=== PATIENT | female | born 1945 | race Caucasian/White ===

== ENCOUNTER 2017-05-11 09:33 | Outpatient (CLI) | payer MEDICARE ==
[~2017-05-11] VITALS: Ht 154.9 cm; Wt 106.9 kg
--- NOTE | ~2017-05-11 | HEMODYNAMI ---
PATIENT:MELISSA CARLIN V MEDICAL RECORD: [id number] : 41 LOCATION:[facility] ADMISSION DATE: 05/11/17 Generatedon:05/11/201712:58 Patient name: MELISSA CARLIN Patient #: [id number] SSN: : 1945 Date of study: 05/11/2017 Page: Of Hemodynamic Procedure Report Patient Data Patient Demographics Procedure consent was obtained First Name: MELISSA Gender: Female Last Name: RAEGAN : 1945 [facility] Initial: V Age: 71 year(s) Patient #: [id number] Race: Unknown Additional ID: [id number] Contact details [address]: [address] [place] [address] [address] [facility] State: [place] City: [facility] Zip code: [address] Past Medical History Allergies Allergen Reaction Date Comments Reported Sulfa drugs 05/11/2017 Other allergy 05/11/2017 Erythromycin Admission Admission Data Admission Date: 05/11/2017 Admission Time: 9:33 Procedure Procedure Types Cath Procedure Diagnostic Procedure [facility] w/Coronaries FFR/IVUS Intra-Coronary IVUS Initial PCI Procedure Coronary Stent Initial Miscellaneous Procedures Moderate Sedation up to 30 minutes Procedure Description Procedure Date Procedure Date: 05/11/2017 Procedure Start Time: 12:40 Procedure End Time: 12:58 Procedure Staff Name Function Yosef Alicea MD Performing Physician Delvin Owens RN Nurse Shelbi King RT Monitor Justyn Lynch RT Scrub Farheen Delgado RT Scrub Procedure Data Cath Procedure Fluoroscopy Diagnostic fluoroscopy Total fluoroscopy Time: 2.8 time: 2.8 min min Diagnostic fluoroscopy Total fluoroscopy dose: 701 dose: 701 mGy mGy Contrast Material Contrast Material Type Amount (ml) Isovue 300 79 Entry Location Entry Primary Successful Side Size Upsize Upsize Entry Closure Succes sful Closure Location (Fr) 1 (Fr) 2 (Fr) Remarks Device Remarks Femoral Right 5 Fr 6 Fr Exoseal artery Short Estimated blood loss: 10 ml Diagnostic catheters Device Type Used For End Catheter Placement Cordis 5Fr Pigtail LV Angiography Catheter (MP) Cordis 5Fr JL 4.0 Left Coronary Catheter (MP) Angiography Cordis 5Fr 3DRC Catheter Right Coronary (MP) Angiography Procedure Complications No complications Procedure Medications Medication Administration Route Dosage Oxygen NC 2 l/min Heparin Flush Bag added to field 2 bags (1000units/500ml NS) 0.9% NaCl I.V. 100 ml/hr Fentanyl I.V. 50 mcg Versed I.V. 1 mg Fentanyl I.V. 50 mcg Versed I.V. 1 mg Heparin Bolus I.V. 4000 units Hemodynamics Rest Heart Rate: 75 (bpm) Snapshots Pre Cath Intra NCS Post Cath Vital Signs Time Heart Resp SPO2 etCO2 UN5mmzs NIBP (mmHg) Rhythm Pain Sedation Rate (ipm) (%) (mmHg) (mmHg) Status Level (bpm) 12:19:49 79 18 90 0 0 139/69(121) NSR 0 (11) 10(A) , No pain 12:24:09 73 19 90 0 0 128/58(110) NSR 0 (11) 10(A) , No pain 12:28:32 78 18 90 0 0 126/61(82) NSR 0 (11) 10(A) , No pain 12:32:44 68 17 92 0 0 119/59(83) NSR 0 (11) 10(A) , No pain 12:37:02 73 18 93 0 0 114/63(78) NSR 0 (11) 10(A) , No pain 12:41:24 74 18 96 0 0 119/30(91) NSR 0 (11) 9(A) , No pain 12:46:37 81 17 94 0 0 122/70(99) NSR 0 (11) 9(A) , No pain 12:50:49 81 16 96 0 0 132/84(120) NSR 0 (11) 9(A) , No pain 12:55:48 81 11 94 0 0 Measuring NSR 0 (11) 9(A) , No pain 12:56:17 79 11 94 0 0 120/56(98) NSR 0 (11) 9(A) , No pain Medications Time Medication Route Dose Verified Delivered Reason Notes Effectiveness by by 12:35:46 Oxygen NC 2 Delvin Hargrove Per physician l/min Roman Owens RN RN 12:35:56 Heparin Flush added 2 Delvin Delvin used for Bag to bags Roman Owens RN procedure (1000units/500ml field RN NS) 12:36:25 0.9% NaCl I.V. 100 Delvin Delvin Per physician ml/hr Roman Owens RN RN 12:36:43 Fentanyl I.V. 50 Delvin Delvin for sedation mcg Roman Owens RN RN 12:36:51 Versed I.V. 1 mg Delvin Delvin for sedation Roman Owens RN RN 12:40:19 Fentanyl I.V. 50 Delvin Delvin for sedation mcg Roman Owens RN RN 12:40:26 Versed I.V. 1 mg Delvin Delvin for sedation Roman Owens RN RN 12:47:10 Heparin Bolus I.V. 4000 Delvin Delvin for units Roman Owens RN anticoagulation easement worker Log Time Note 11:55:59 Delvin Owens RN sent for patient. Start room use. 12:04:00 Time tracking: Regular hours 12:04:04 Plan of Care:Hemodynamics will remain stable., Cardiac rhythm will remain stable., Comfort level will be maintained., Respiratory function will remain adequate., Patient/ family verbilizes understanding of procedure., Procedure tolerated without complication., Recovers from procedure without complications.. 12:13:29 Patient received from Pre/Post Procedure Room to [facility] 1 Alert and oriented. Tansferred to table in Supine position. 12:13:30 Warm blankets applied, and valery hugger turned on for patient comfort. 12:13:31 Correct patient and procedure confirmed by team. 12:13:32 Signed procedure consent form obtained from patient. 12:13:33 ECG and BP/O2 sat monitors applied to patient. 12:13:34 Full Disclosure recording started 12:18:40 Vital chart was started 12:22:17 Baseline sample Acquired. 12:22:20 Rhythm: sinus rhythm 12:22:43 H&P Date Dictated: 05/11/2017 Within 30 days and on chart., New H&P dictated by physician.. 12:22:44 Pre-procedure instructions explained to patient. 12:22:44 Pre-op teaching completed and patient verbalized understanding. 12:22:45 Family in waiting room. 12:22:47 Patient NPO since Midnight. 12:22:59 Patient allergic to Sulfa drugs 12:23:12 Patient allergic to Other allergyErythromycin 12:23:22 Is the patient allergic to Iodine/contrast media? No. 12:23:30 Is patient on blood thinner?No 12:23:33 Patient diabetic? Yes. 12:23:37 Previous problem with sedation/anesthesia? No ? 12:23:38 Snore? Yes 12:23:39 Sleep apnea? No 12:23:41 Deviated septum? No 12:23:41 Opens mouth fully? Yes 12:23:42 Sticks out tongue? Yes 12:23:44 Airway obstruction? No ? 12:23:46 Dentures? No ? 12:23:49 Pre procedure: right dorsailis pedis pulse 1+ Palpable, but thready & weak; easily obliterated 12:23:51 Patient pain scale 0/10 ?. 12:23:56 IV patent on arrival in left hand with 0.9% NaCl at O. 12:24:00 Lab results completed and on chart. 12:24:02 Right groin area was prepped with chlora-prep and draped in sterile fashion 12:24:03 Alarms reviewed by R. N. 12:24:03 Sharps counted by scrub and verified by R.N. 12:24:06 Use device set Femoral Dx 12:24:07 Acist Syringe opened to sterile field. 12:24:08 Bag Decanter opened to sterile field. 12:24:08 Medline Cath Pack opened to sterile field. 12:24:08 Terumo 5Fr Lublin Sheath opened to sterile field. 12:24:09 St Bryon 260cm J .035 wire opened to sterile field. 12:24:10 Acist Hand Control opened to sterile field. 12:24:11 Acist Manifold opened to sterile field. 12:24:11 Diagnostic Infinity 5Fr Multipack catheter opened to sterile field. 12:24:11 Tegaderm 4 x 4 opened to sterile field. 12:25:33 If diabetic: On Metformin? Yes 12:25:45 If on Metformin: Last Dose? 05/09/2017 12:25:50 Final Timeout: patient, procedure, and site verified with staff and physician. All members of the team are in agreement. 12:25:53 Right groin site verified by team. 12:25:56 Physical assessment completed. ASA score P 2 - A patient with mild systemic disease as per Yosef Alicea MD. 12:26:00 Sedation plan: IV Moderate Sedation Versed, Fentanyl 12:28:14 Zero performed for pressure channel P1 12:35:46 Oxygen 2 l/min NC was administered by Delvin Owens RN; Per physician; 12:35:56 Heparin Flush Bag (1000units/500ml NS) 2 bags added to field was administered by Delvin Owens RN; used for procedure; 12:36:25 0.9% NaCl 100 ml/hr I.V. was administered by Delvin Owens RN; Per physician; 12:36:43 Fentanyl 50 mcg I.V. was administered by Delvin Owens RN; for sedation; 12:36:51 Versed 1 mg I.V. was administered by Delvin Owens RN; for sedation; 12:40:19 Fentanyl 50 mcg I.V. was administered by Delvin Owens RN; for sedation; 12:40:26 Versed 1 mg I.V. was administered by Delvin Owens RN; for sedation; 12:40:28 Procedure started. 12:40:31 Local anesthetic to right femoral artery with Lidocaine 2% by Yosef Alicea MD.INITIAL ACCESS ONLY 12:40:56 A 5 Fr sheath was inserted into the Right Femoral artery 12:41:03 A Cordis 5Fr Pigtail Catheter (MP) was advanced over the wire and used for LV Angiography. 12:42:28 LV gram done using MCGHEE 12:42:32 EF : 60 % 12:42:36 Injector settings: Ml/sec: 10, Volume: 20, 12:42:38 Catheter removed. 12:42:49 A Cordis 5Fr JL 4.0 Catheter (MP) was advanced over the wire and used for Left Coronary Angiography. 12:44:17 Catheter removed. 12:44:32 Terumo 6Fr Lublin Sheath opened to sterile field. 12:44:33 Corona Whisper J 300cm 0.014 guide wire opened to sterile field. 12:44:33 Oxatis BasixCompak Inflation Kit opened to sterile field. 12:44:52 A Cordis 5Fr 3DRC Catheter (MP) was advanced over the wire and used for Right Coronary Angiography. 12:45:12 Torrey [place]ag[place] IVUS Catheter opened to sterile field. 12:46:29 Catheter removed. 12:46:52 Sheath upsized to a 6 Fr Short. 12:47:00 Cordis 6FR XBLAD 3.5 guide catheter opened to sterile field. 12:47:09 6 Fr XBLAD 3.5 guide catheter was inserted over the wire 12:47:10 Heparin Bolus 4000 units I.V. was administered by Delvin Owens RN; for anticoagulation; 12:47:33 Whisper wire advanced. 12:50:13 IVUS catheter advanced over wire. 12:50:15 IVUS pass to LAD lesion performed. 12:50:16 IVUS catheter removed over wire. 12:51:26 Inflation Number: 1 A Telarixtronic Integrity 3.0 X 15 stent was prepped and advanced across the Prox LAD. The stent was deployed at 15 NEENA for 0:04 (min:sec). 12:51:47 Stent catheter was removed intact over wire. 12:51:48 Wire removed. 12:51:48 Guide catheter removed. 12:51:58 Sheath removed intact; hemostasis achieved with Exoseal to the Right Femoral artery. 12:52:00 Procedure ended.(Physican Out) 12:53:40 Fluoroscopy time 02.80 minutes. 12:53:43 Fluoroscopy dose: 701 mGy 12:53:43 Flurop Dose total: 701 12:53:47 Contrast amount:Isovue 300 79ml. 12:53:49 Sharps counted by scrub and verified by R.N. 12:53:50 Insertion/operative site no bleeding no hematoma. 12:53:55 Post-op/insertion site Right Femoral artery dressed using a 4 x 4 and Tegaderm. 12:53:59 Post right femoral artery:stable, clean and dry 12:54:01 Post Procedure Pulses reassessed and unchanged 12:54:03 Post-procedure physical assessment completed. ASA score P 2 - A patient with mild systemic disease as per Yosef Alicea MD. 12:54:05 Post procedure rhythm: unchanged. 12:54:07 Estimated blood loss: 10 ml 12:54:08 Post procedure instruction explained to patient.Patient verbalizes understanding. 12:54:08 Patient needs reinforcement of post procedure teaching. 12:54:27 Procedure type changed to Cath procedure, Diagnostic procedure, LHC, C w/Coronaries, FFR/IVUS, Intra-Coronary IVUS Initial, PCI procedure, Coronary Stent Initial, Miscellaneous Procedures, Moderate Sedation up to 30 minutes 12:54:35 Procedure Complication : No complications 12:54:38 See physician's report for complete and final results. 12:55:05 Cordis 6Fr Exoseal opened to sterile field. 12:56:27 Procedure and supply charges have been captured, reviewed, submitted and are correct. 12:58:25 Vital chart was stopped 12:58:27 Report given to Pre/Post Procedure Room. 12:58:30 Patient transfered to Pre/Post Procedure Room with Stretcher. 12:58:38 Procedure ended. 12:58:38 Full Disclosure recording stopped 12:58:41 End room use (Document Last) Intervention Summary Intervention Notes Time ActionType Lesion and Equipment Action# Pressure Duration Attributes Used 12:51:26 Place stent Prox LAD Medtronic 1 15 00:04 Integrity 3.0 X 15 stent Device Usage Item Name Manufacture Quantity Catalog Hospital Part Current Minimal L ot# / Number Charge Number Stock Stock Serial# Code Acist Acist 1 82534 [id number] 316247 620138 20 Syringe Medical Systems Inc Bag Microtek 1 2002S 946687 36174 967824 5 Happy Hour [employer] Inc. Medline Cardinal 1 [id number] 488437 81840 370411 5 Cath Pack Health Terumo 5Fr Terumo 1 [id number] 832627 428012 616571 [address] Bryon 1 161750 096509 268341 675916 30 260cm J .035 wire Acist Hand Acist 1 40304 602154 358352 742366 5 ViClone Medical [employer] Inc Acist Acist 1 74015 521417 710329 230844 5 Eversnap Medical Systems Inc Diagnostic Cardinal 1 [id number] 913191 02354 816236 30 Infinity Health 5Fr Multipack catheter Tegaderm 4 3M 1 1626W 264426 786886 250591 5 x 4 Cordis 5Fr Cardinal 1 626115 5 Pigtail Health Catheter (MP) Cordis 5Fr Cardinal 1 580304 5 JL 4.0 Health Catheter (MP) Terumo 6Fr Terumo 1 JRN760 459816 667311 111315 40 Lublin Sheath Corona Corona 1 [id number] 405641 162867 889991 5 Whisper J Vascular 300cm 0.014 guide wire Merit Merit 1 BD8825 370647 218199 017931 15 BasixComApp Pressk Medical Inflation Kit Cordis 5Fr Cardinal 1 055472 5 [facility] Health Catheter (MP) Solomon Carbajal 1 50350Y 500515 748110 006628 8 [place] IVUS Catheter Cordis 6FR Cardinal 1 [id number] 430272 450757 993715 10 XBLAD 3.5 Health guide catheter Medtronic Medtronic 1 [id number] 609007 072575 1 0 [id number] Integrity 3.0 X 15 stent Cordis 6Fr Cardinal 1 EX600 670218 989314 332379 10 [facility] Proxim Wireless Signature Audit [place] Stage Time Signature Unsigned Intra-Procedure 05/11/2017 Shelbi 12:58:51 PM Counts RT(R) Signatures Monitor : Shelbi Signature : Counts RT Date : Time : [id number] [place] [address]
[~2017-05-11 09:33] MED LIST: ASCORBIC ACID500 MG PO; BAYER CHEWABLE81 MG PO; CELEBREX200 MG PO; CRESTOR10 MG PO; IMDUR30 MG PO; JANUMET 50-1,001 TAB PO; KENALOG 0.1 % 115 GM TP; LANTUS SOL100 UNIT/1 SQ; LISINOPRIL-HCTZ1 T11 PO; LOTRISONE LOTIO30 ML TP; LYRICA150 MG PO; NEXIUM40 MG PO; NORITATE60 GM TP; NORVASC10 MG PO; PLAVIX75 MG PO; PRISTIQ100 MG PO; VESICARE10 MG PO; VITAMIN D3400 UNI1 PO; VOLTAREN100 GM TOPICAL; ZYRTEC10 MG PO
[2017-05-11] MEDS ORDERED: KENALOG 0.1 % 115 GM TOPICAL (10:53)
[2017-05-11 11:01] VITALS: BP 154/62; BMI 42.8
[2017-05-11 11:08] LABS: BASOPHILS 0.3 % (0-2); EOSINOPHILS 1.5 % (0-7); HEMATOCRIT 36.8 % (36.0-48.0); HEMOGLOBIN 12.4 g/dL (12-16); IMMATURE GRANULOCYTES 0.3 % (0-5); LYMPHOCYTES 22.9 % (15-50); MCH 30.5 pg (26.0-34.0); MCHC 33.7 g/dL (31.0-37.0); MCV 90.6 fL (80.0-100.0); MEAN PLATELET VOLUME 10.2 fL (7.4-10.4); MONOCYTES 13.2 % (2-11); NEUTROPHILS 61.8 % (40-80); PLATELET COUNT 237 10x3/uL (130-400); RBC 4.06 10x6/uL (4.00-5.40); RDW 13.1 % (11.5-14.5); WBC 6.9 10x3/uL (4.8-10.8)
[2017-05-11 11:30] LABS: ANION GAP 12.2 mmol/L (8-16); CARBON DIOXIDE 28.5 mmol/L (21.0-32.0); CREATININE - SERUM 1.1 mg/dL (0.6-1.3); POTASSIUM - SERUM 4.7 mmol/L (3.5-5.1)
--- NOTE | 2017-05-11 13:30 | NUR ---
1325 LYING FLAT, 2L NC APPLIED WHILE SLEEPING. SR RATE 71 W NO C/O CHEST PAIN. PULSES PALP X 4. R GROIN 6F EXOSEAL C/D/I WITH NO HEMATOMA OR BLEEDING. DAUGHTER AT BEDSIDE. WILL MONITOR FOR BLEEDING.
--- NOTE | 2017-05-11 13:39 | NUR ---
R GROIN OOZING BLOOD, PRESSURE HELD FOR 5 MINUTES AND TEGADERM/GAUZE REPLACED. WILL MONITOR CLOSELY. ALL VITALS REMAIN WNL.
--- NOTE | 2017-05-11 13:47 | NUR ---
FEMSTOP APPLIED TO R GROIN. PATIENT HAS SKIN TEAR IN FOLD. SKIN TEAR WAS PRESENT ON ARRIVAL. CATH TEAM CALLED TO APPLY FEMSTOP AT LIGHT PRESSURE. WILL CONTINUE TO MONITOR CLOSELY.
--- NOTE | 2017-05-11 14:12 | NUR ---
FEMSTOP REMAINS IN PLACE AT MINIMUM PRESSURE.
--- NOTE | 2017-05-11 14:43 | NUR ---
RESTING QUIETLY WITH VSS CHEST PAIN DENIED. FEMSTOP REMAINS AT MIMIMUM PRESSURE
--- NOTE | 2017-05-11 15:30 | NUR ---
PRESSURE RELEASED ON FEMSTOP WITH SMALL AMOUNT OF BLEEDING NOTED. IT INVESTMENT/PORTFOLIO MANAGER NOTIFIED
--- NOTE | 2017-05-11 15:45 | NUR ---
ORE SMELTER STAFF AT BEDSIDE WITH PRESSURE HELD FOR 10 MINUTES SITE REMAINS TO HAVE SMALL AMOUNT OF BLEEDING. DR TOBAR NOTIFIED WITH FEMSTOP BACK IN PLACE AND ADMIT FOR OBSERVATION
--- NOTE | 2017-05-11 16:48 | NUR ---
REPORT CALLED TO LEATHA AT 4812 WITH PATIENT TRANSFERED TO ROOM 2116
[2017-05-11 17:29] VITALS: BP 150/59; BMI 42.8
--- NOTE | 2017-05-11 17:42 | NUR ---
ALERT AND ORIENTED X4. FEMSTOP PRESSURE DECREASED TO 122mmHG. NO BLOOD ON 4X4 OVER PUNCTURE SITE. CONTINUE TO LOWER PRESSURE. REFUSE SCDs. CONTINUE PLAN OF CARE.
[2017-05-11 20:00] VITALS: BP 142/64
--- NOTE | 2017-05-11 20:43 | NUR ---
RESUMED CARE OF PT, LYING IN BED RESPIRATIONS EVEN AND UNLABORED ON ROOM AIR. 71 SR ON TELEMETRY. LEFT FOREARM SALINE LOCKED. ASSISSTED TO BEDPAN, FEMSTOP IN PLACE FOR NOW, BUT NO PRESSURE TO EXOSEAL. NO NEEDS AT THIS TIME, PEDAL PULSE PALPABLE. CALL LIGHT IN REACH, WILL CONTINUE TO MONITOR. SEE NURSE ASSESSMENT.
[2017-05-12] VITALS: BP 132/47
--- NOTE | 2017-05-12 00:19 | NUR ---
IT HELP DESK TECHNICIAN AT BEDSIDE TO OBTAIN VITALS, CALL LIGHT IN REACH. WILL CONTINUE TO MONITOR.
[2017-05-12 04:00] VITALS: BP 135/55
--- NOTE | 2017-05-12 04:53 | NUR ---
NO CHANGES FROM PREVIOUS ASSESSMENT, CALL LIGHT IN REACH. WILL CONTINUE TO MONITOR.
--- NOTE | 2017-05-12 07:30 | NUR ---
RECEIVED PT IN BED EYES CLOSED RESP UNLABORED NAD NOTED
[2017-05-12 07:47] VITALS: BP 155/64
[2017-05-12 11:42] VITALS: BP 129/54
--- NOTE | 2017-05-12 12:00 | NUR ---
REVIWED DISCHARGE INSTRUCTIONS WITH PT STATES UNDERSTANDING COPY GIVEN DCD SALINE LOCK TO LAC WITH CATHETER INTACT SITE FREE OF REDNESS OR EDEMA PT DISCHARGED HOME LEFT UNIT VIA W/C IN STABLE CONDITION WITH ALL PERSONAL BELONGINGS
--- NOTE | 2017-05-12 12:22 | HP ---
PATIENT: MELISSA CARLIN V MEDICAL RECORD: [id number] ACCOUNT: [id number] LOCATION:[address] : 41 ADMISSION DATE: 05/11/17 HISTORY AND PHYSICAL EXAMINATION DIAGNOSES: 1. Angina. 2. Abnormal nuclear stress test. 3. Hypertension. 4. Hyperlipidemia. HISTORY OF PRESENT ILLNESS: Mrs. Carlin presents with increasing anginal symptomatology. Risk stratified with nuclear stress test revealed significant perfusion defect, now brought for cardiac catheterization. PHYSICAL EXAMINATION: GENERAL APPEARANCE: Well-nourished, well-developed, appears stated age. Level of distress, comfortable. PSYCHIATRIC: Mental status, alert, normal affect. Orientation, oriented to time, place and person. EYES: Lids and conjunctiva, noninjected. No discharge, no pallor. ENT: Lips, teeth, gums, normal dentition. Oropharynx, no cyanosis, no pallor. NECK: Carotid arteries, bilateral normal upstroke, no bruits, no thrills. JUGULAR VEINS: No jugular venous pressure or distention. CERVICAL LYMPH NODES: Nontender, nonenlarged. THYROID: Not enlarged. Nontender. No nodules. LUNGS: Respiratory effort, unlabored. CHEST: Normal curvature. No thoracic deformity. No chest wall tenderness. Percussion, resonant. Auscultation, clear. No wheezes, no rales, no rhonchi. CARDIOVASCULAR: Precordial exam, nondisplaced. No heaves or pericardial thrills. Rate and rhythm, regular. Heart sounds, normal S1, normal S2. No S3, no gallop, no rub. Systolic murmur, not heard. Diastolic murmur, not heard. EXTREMITIES: No cyanosis, no edema. Peripheral pulses, full and equal in all extremities, except as noted. No bruits appreciated. ABDOMEN: Soft, nondistended. Normal aorta. No bruit. Nontender. No masses. Liver, nontender, no hepatomegaly. Spleen, nontender, no splenomegaly. MUSCULOSKELETAL: No joint tenderness. No joint swelling. No erythema. NEUROLOGICAL: Normal gait, normal strength, normal tone. SKIN: Warm and dry. REVIEW OF SYSTEMS: The patient reports easy bruising but reports no swollen glands. The patient reports no fever, no night sweats, no significant weight gain, no significant weight loss. No significant exercise tolerance. The patient reports no dry eyes, no irritation, no vision change. Patient reports no difficulty hearing and no ear pain. Patient reports no frequent nose bleeds or nose and sinus problems. Patient reports on arm pain on exertion. No shortness of breath while lying down. No history of heart murmur. Patient reports no cough, no wheezing or coughing up blood. Patient reports no abdominal pain, no vomiting. Normal appetite. No diarrhea and not vomiting blood. No nausea and no constipation. Patient reports no incontinence. No difficulty urinating. No hematuria. No increased frequency. Patient reports no muscle aches. No weakness, no arthralgias, no back pain. No swelling of the extremities. Patient reports no abnormal mole, no jaundice, no rashes. Reports no loss of consciousness. No weakness and no numbness. No seizures, dizziness, or headaches. The patient reports no depression, no sleep disturbance, feeling HISTORY AND PHYSICAL [id number] CARLIN,TORRES V safe in a relationship and no alcohol abuse. Patient reports on fatigue. Reports no runny nose or sinus pressure. No itching, no hives, and no frequent sneezing. OVERALL IMPRESSION: Anginal symptomatology with significant perfusion defect. We will proceed with coronary angiography. Further care depends on the findings of the angiography. TRANSINT:[id number] Voice Confirmation ID: [id number] DOCUMENT ID: [id number] SUNNY TOBAR MD at 1222 CC: [id number] DICTATION DATE: 05/11/17 0904 SUPERVISOR FIBER LOCKING: 05/11/17 0950 REG [facility] [address] [place] [address]
--- NOTE | 2017-05-12 12:22 | OP ---
PATIENT NAME: MELISSA CARLIN V MEDICAL RECORD: [id number] :41 LOCATION:D.M2 D.2117 ADMISSION DATE: SURGEON: SUNNY TOBAR MD DATE OF OPERATION: 05/11/2017 PROCEDURES: 1. PTCA stent LAD. 2. Intravascular ultrasound. 3. Left heart catheterization. 4. Selective coronary angiography. 5. Left ventriculogram. INDICATION: Angina and coronary artery disease. PROCEDURE IN DETAIL: After informed consent was obtained and after detailed explanation of risks, benefits as well as alternative therapies, the patient elected to proceed with angiogram and angioplasty. The right femoral area was prepped and draped in normal sterile fashion. Right femoral artery was cannulated via modified Seldinger technique with placement of 6-Amharic sheath. All catheters exchanged through this sheath. FINDINGS: The left ventriculogram was performed in standard 30-degree MCGHEE view, reveals good cardiac wall motion throughout all segments. Overall ejection fraction estimated at 60%. SELECTIVE CORONARY ANGIOGRAPHY: 1. Left main showed no significant angiographic disease. 2. Left anterior descending has a 70% stenosis proximally confirmed by intravascular ultrasound. 3. Left circumflex has mild irregularities, but no flow-limiting stenosis. 4. Right coronary has [id number] irregularities, but no flow-limiting stenosis. PTCA STENT OF THE LAD: The anterior perfusion defect correlated with the lesion in the LAD. This was addressed with a 3.0 x 15 mm Integrity. Result was 0% residual stenosis. OVERALL IMPRESSION: Successful percutaneous transluminal coronary angioplasty stent of the left anterior descending going from 70% initial stenosis to 0% residual stenosis. TRANSINT:[id number] Voice Confirmation ID: [id number] DOCUMENT ID: [id number] SUNNY TOBAR MD at 1222 CC: [id number] DICTATION DATE: 05/11/17 1302 TOLL RELIEF OPERATOR: 05/11/17 1828 REG [facility] [address] [place] [id number]
[2017-05-12 13:05] VITALS: Ht 154.9 cm; Wt 106.9 kg
--- NOTE | 2017-05-13 11:12 | DS ---
PATIENT:MELISSA CARLIN V :41 MEDICAL RECORD: [id number] DISCHARGE SUMMARY ADMISSION DATE: 05/11/17 DISCHARGE DATE: 05/12/17 DATE OF DISCHARGE: 05/12/2017 DISCHARGE DIAGNOSES: 1. Angina. 2. Coronary artery disease. 3. Percutaneous transluminal coronary angioplasty stent this admission. 4. Hypertension. 5. Hyperlipidemia. HOSPITAL COURSE: Ms. Carlin presents with anginal symptomatology, found to have single vessel disease, underwent successful PTCA stent. Discharged home with no change in her medications as she is already on aspirin and Plavix. To follow up with [facility] in 1 month. TRANSINT:[id number] Voice Confirmation ID: [id number] DOCUMENT ID: [id number] SUNNY TOBAR MD at 1112 CC: [id number] DICTATION DATE: 05/12/17 1315 MEDICAL RECORDS AUDITOR: 05/13/17 0135 DEP CLI 05/12/17 [address] [place] [address]
== END 2017-05-12 12:00 | disposition home or self-care (01) ==
LOC: D.CATH 09:33 → D.M2 16:13 → D.CATH 05-12 12:00
PROVIDERS: Internal Medicine Interventional Cardiology
DX: I25.119 Atherosclerotic heart disease of native coronary artery with unspecified angina pectoris (principal); I10 Essential (primary) hypertension; E78.5 Hyperlipidemia, unspecified; Z01.812 Encounter for preprocedural laboratory examination

== ENCOUNTER → 2019-05-10 11:09 | Outpatient (CLI) | payer MEDICARE ==
[2017-05-12 13:05] VITALS: BMI 44.5
[~2019-05-10 11:09] MED LIST changes: +KENALOG 0.1 % 115 GM TOPICAL
--- NOTE | 2019-05-11 15:34 | ST ---
PATIENT:MELISSA CARLIN V MEDICAL RECORD: [id number] SEX: F LOCATION:[facility] ORDER #: ADMISSION DATE: 05/10/19 AGE OF PATIENT: 73 REFERRING PHYSICIAN: INTERPRETING PHYSICIAN: SUNNY TOBAR MD DATE OF SERVICE: 05/10/2019 PROCEDURE: Nuclear stress test. INDICATIONS: Angina and coronary artery disease, shortness of breath, hypertension, hyperlipidemia. She was exercised on standard Lexiscan protocol with 27 mCi of sestamibi injected at peak stress, 9 mCi used previously for rest images. FINDINGS: Gated SPECT reveals a preserved ejection fraction at 67% with decreased thickening and brightening throughout the anterior segments. SPECT Imaging: Cardiolite was used as myocardial perfusion agent. There is a fixed perfusion defect anteriorly compatible with previous anterior myocardial infarction; however, there are reversible changes inferiorly. The degree of reversibility is moderate. The amount of myocardium involved between these 2 defects is large. OVERALL IMPRESSION: This is an intermediate- to high-risk nuclear stress test with large reversible and fixed perfusion defects anteriorly as well as inferiorly suggestive of multivessel coronary artery disease. TRANSINT:[id number] Voice Confirmation ID: [id number] DOCUMENT ID: [id number] SUNNY TOBAR MD at 1534 CC: [id number] DICTATION DATE: 05/10/192148 TILLER MAN: 05/11/19 0315 DEP CLI 05/10/19 [address] [place] [address]
== END | disposition home or self-care (01) ==
LOC: D.HCCARDIO 11:09
PROVIDERS: ATTEND Internal Medicine Interventional Cardiology
DX: I25.119 Atherosclerotic heart disease of native coronary artery with unspecified angina pectoris (principal)

== ENCOUNTER 2019-05-22 09:23 | Outpatient (CLI) | payer MEDICARE ==
[~2019-05-22] VITALS: Ht 154.9 cm; Wt 100.0 kg
--- NOTE | ~2019-05-22 | HEMODYNAMI ---
PATIENT:MELISSA CARLIN V MEDICAL RECORD: [id number] : 41 LOCATION:[facility] ADMISSION DATE: 05/22/19 Generatedon:05/22/201914:44 Patient name: MELISSA CARLIN Patient #: [id number] SSN: [id number] : 1945 Date of study: 05/22/2019 Page: Of Hemodynamic Procedure Report Patient Data Patient Demographics Procedure consent was obtained First Name: MELISSA Gender: Female Last Name: RAEGAN : 1945 [facility] Initial: V Age: 73 year(s) Patient #: [id number] Race: SSN: [id number] Additional ID: [id number] Contact details [address]: [address] [place] [address] [address] State: [place] City: [facility] Zip code: [address] Past Medical History Allergies Allergen Reaction Date Comments Reported Sulfa drugs 05/11/2017 Other allergy 05/11/2017 Erythromycin Other allergy 05/22/2019 ERYTHROMYCIN BASE, SULFA Admission Admission Data Admission Date: 05/22/2019 Admission Time: 9:23 Arrival Date: 05/22/2019 Arrival Time: 0:00 Admit Source: Other Insurance Payor: Medicare, Medicaid [facility] #: [id number] Height (in.): 61 BSA: 1.97 (m2) Height (cm.): 154.94 BMI: 41.66 (kg/m2) Weight (lbs.): 220.46 Weight (kg.): 100 Lab Results Lab Result Date: 05/22/2019 Lab Result Time: 10:25 Biochemistry Name Units Result Min Max BUN mg/dl 29 --(----)-* 7 18 Creatinine mg/dl 1 --(--*-)-- 0.6 1.3 CBC Name Units Result Min Max Hematocrit % 35.3 *-(----)-- 42 54 Hemoglobin g/dl 12.1 *-(----)-- 13.5 17.5 Procedure Procedure Types Cath Procedure Diagnostic Procedure C LH w/Coronaries FFR/IVUS FFR Initial Sedation Charges Moderate Sedation up to 15 minutes PCI Procedure Coronary Stent Coronary Stent Initial Procedure Description Procedure Date Procedure Date: 05/22/2019 Procedure Start Time: 14:23 Procedure End Time: 14:39 Procedure Staff Name Function Ysoef Alicea MD Performing Physician Ross Shaw RT Monitor Karl Portillo RN Nurse Jennifer Wood RT Scrub Justyn Lynch RT Winch Runner Procedure Data Cath Procedure Fluoroscopy Diagnostic fluoroscopy Total fluoroscopy Time: 3.1 time: 3.1 min min Diagnostic fluoroscopy Total fluoroscopy dose: 873 dose: 873 mGy mGy Contrast Material Contrast Material Type Amount (ml) Isovue 300 90 Entry Location Entry Primary Successful Side Size Upsize Upsize Entry Closure Succes sful Closure Location (Fr) 1 (Fr) 2 (Fr) Remarks Device Remarks Femoral Right 5 Fr Exoseal artery Estimated blood loss: 10 ml Diagnostic catheters Device Type Used For End Catheter Placement MULTIPACK Pigtail 5 Fr Procedure catheter MULTIPACK JL 4.0 5Fr Procedure catheter MULTIPACK 3DRC 5Fr Procedure catheter Procedure Complications No complications Procedure Medications Medication Administration Route Dosage Oxygen etCO2 Nasal cannula 2 l/min Lidocaine 2% added to field 20 Heparin Flush Bag added to field 2 bags (1000units/500ml NS) 0.9% NaCl I.V. 100 ml/hr Versed I.V. 2 mg Fentanyl I.V. 50 mcg Versed I.V. 0.5 mg Fentanyl I.V. 50 mcg Heparin Bolus I.V. 4000 units Integrilin (Bolus I.V. 9 ml 2mg/ml) Plavix P.O. 600 mg Hemodynamics Rest BSA: 1.97 (m2) HGB: 12.1 (g/dl) O2 Consumption: Estimated: 178.55 (ml/min) O2 Co nsumption indexed: Estimated:90.63 (ml/min/m) Heart Rate: 69 (bpm) Pressure Samples Time Site Value (mmHg) Purpose Heart Use Rate(bpm) 14:25 LV 160/21,22 Snapshot 69 14:25 LV 158/19,26 Snapshot 65 Snapshots Pre Cath Intra NCS Post Cath Vital Signs Time Heart Resp SPO2 etCO2 NIBP (mmHg) Rhythm Pain Sedation Rate (ipm) (%) (mmHg) Status Level (bpm) 14:09:06 70 12 96 50.8 178/80(136) NSR 0 (11) 10(A) , No pain 14:13:55 72 20 99 29.9 153/81(119) NSR 0 (11) 10(A) , No pain 14:18:29 69 19 97 44.1 161/94(121) NSR 0 (11) 10(A) , No pain 14:23:12 66 12 95 44.1 156/69(128) NSR 0 (11) 10(A) , No pain 14:27:50 78 13 94 23.1 163/82(132) NSR 0 (11) 9(A) , No pain 14:32:31 73 13 94 38.8 153/84(118) NSR 0 (11) 9(A) , No pain 14:37:05 76 12 94 31.3 150/87(130) NSR 0 (11) 10(A) , No pain Medications Time Medication Route Dose Verified Delivered Reason Notes Effectiveness by by 14:07:31 Oxygen etCO2 2 Yosef Barajas used for Nasal l/min Nixon Portillo RN procedure cannula 14:07:38 Lidocaine 2% added 20ml Yosefelena Navas for local to vial Nixon Alicea MD anesthetic field 14:07:43 Heparin Flush added 2 Yosef Yosef used for Bag to bags Nixon Alicea MD procedure (1000units/500ml field NS) 14:07:52 0.9% NaCl I.V. 100 Yosef Barajas Per physician ml/hr Nixon Portillo RN 14:22:20 Versed I.V. 2 mg Yosef Barajas for sedation Nixon Portillo RN 14:22:26 Fentanyl I.V. 50 Yosef Buffie for sedation mcg Nixon Portillo RN 14:26:59 Versed I.V. 0.5 Yosef Buffie for sedation mg Nixon Portillo RN 14:30:34 Fentanyl I.V. 50 Yosef Buffie for sedation mcg Nixon Portillo RN 14:33:51 Heparin Bolus I.V. 4000 Yosef Milanie for verif ied units Nixon Portillo RN anticoagulation with dr alicea 14:35:05 Integrilin I.V. 9 ml Yosef Barajas for waste d 1 (Bolus 2mg/ml) Nixon Portillo RN antiplatelet ml of therapy vial 14:44:15 Plavix P.O. 600 Yosef Barajas for mg Nixon Portillo RN antiplatelet therapy Procedure Log Time Note 13:41:52 Informed consent obtained and on chart 13:45:19 Karl Portillo RN sent for patient. Start room use. 13:52:10 Procedure Status Elective Heart Cath (OP). 13:52:12 Time tracking: Regular hours (M-F 7:00 - 5:00) 13:52:18 Plan of Care:Hemodynamics will remain stable., Cardiac rhythm will remain stable., Comfort level will be maintained., Respiratory function will remain adequate., Patient/ family verbilizes understanding of procedure., Procedure tolerated without complication., Recovers from procedure without complications.. 13:53:22 Patient allergic to Other allergyERYTHROMYCIN BASE, SULFA 13:58:59 ACC Patient presents with Stable Angina CCS Anginal Class 2--Slight limitation of ordinary activity. 13:59:51 ACCPatient has been prescribed/administered the following anti-anginal medication within the last 2 weeks: Calcium Channel Blockers, Long-Acting Nitrates, IZZY-Inhibitor 14:03:27 Patient Weight : 220.46 lbs 14:03:30 Patient Height : 61 inches 14:03:50 Admit Source: Other 14:03:52 Arrival Date: 05/22/2019 12:00:00 AM 14:04:12 Insurance Payor : Medicare, Medicaid 14:07:09 Lab Result : Hematocrit 35.3 % 14:07:09 Lab Result : Hemoglobin 12.1 g/dl 14:07:09 Lab Result : Creatinine 1 mg/dl 14:07:09 Lab Result : BUN 29 mg/dl 14:07:21 Vital chart was started 14:07:31 Oxygen 2 l/min etCO2 Nasal cannula was administered by Karl Portillo RN; used for procedure; 14:07:32 Patient received from Pre/Post Procedure Room to CCL 1 Alert and oriented. Tansferred to table in Supine position. 14:07:34 Warm blankets applied, and valery hugger turned on for patient comfort. 14:07:34 Correct patient and procedure confirmed by team. 14:07:34 ECG and BP/O2 sat monitors applied to patient. 14:07:35 Baseline sample Acquired. 14:07:38 Lidocaine 2% 20ml vial added to field was administered by Yosef Alicea MD; for local anesthetic; 14:07:43 Heparin Flush Bag (1000units/500ml NS) 2 bags added to field was administered by Yosef Alicea MD; used for procedure; 14:07:44 Baseline sample Acquired. 14:07:47 Rhythm: sinus rhythm 14:07:49 Full Disclosure recording started 14:07:52 0.9% NaCl 100 ml/hr I.V. was administered by Karl Portillo RN; Per physician; 14:08:12 H&P Date Dictated: 04/25/2019 Within 30 days and on chart., H&P Addendum completed by physician on day of procedure. (MUST COMPLETE FOR ALL OUTPATIENTS). 14:08:13 Pre-procedure instructions explained to patient. 14:08:14 Pre-op teaching completed and patient verbalized understanding. 14:08:15 Family in waiting room. 14:08:16 Patient NPO since Midnight. 14:09:25 Is the patient allergic to Iodine/contrast media? No. 14:09:26 Is patient on blood thinner?No 14:09:27 Patient diabetic? Yes. 14:09:28 If diabetic: On Metformin? No 14:09:30 Previous problem with sedation/anesthesia? No ? 14:09:31 Snore? Yes 14:09:32 Sleep apnea? Yes 14:09:33 Deviated septum? No 14:09:34 Opens mouth fully? Yes 14:09:34 Sticks out tongue? Yes 14:09:36 Airway obstruction? No ? 14:09:39 Dentures? No ? 14:10:16 Pre procedure: right dorsailis pedis pulse 1+ Palpable, but thready & weak; easily obliterated 14:10:18 Patient pain scale 0/10 ?. 14:10:29 IV patent on arrival in left forearm with 0.9% NaCl at O. 14:10:33 Pre procedure: left dorsailis pedis pulse 1+ Palpable, but thready & weak; easily obliterated 14:10:53 Lab results completed and on chart. 14:10:55 Right groin area was prepped with chlora-prep and draped in sterile fashion 14:10:57 Alarms reviewed by R. N. 14:10:57 Sharps counted by scrub and verified by R.N. 14:11:00 Use device set Femoral Dx 14:11:01 ACIST Syringe (34320) opened to sterile field. 14:11:01 Bag Decanter (2002S) opened to sterile field. 14:11:02 Medline Cath Pack ([id number]) opened to sterile field. 14:11:02 ACIST Hand Control (50523) opened to sterile field. 14:11:03 ACIST Manifold (30702) opened to sterile field. 14:11:03 DIAGNOSTIC Multipack 5Fr catheter set (PB2221) opened to sterile field. 14:11:04 Tegaderm 4 x 4 (1626W) opened to sterile field. 14:11:05 EMERALD Guide Wire (548-407) opened to sterile field. 14:11:05 SHEATH 5FR Monarch (ZVX675) opened to sterile field. 14:17:41 Zero performed for pressure channel P1 14:19:23 Physician arrived 14::23 --------ALL STOP TIME OUT------ 14:19:24 Final Timeout: patient, procedure, and site verified with staff and physician. All members of the team are in agreement. 14:19:25 Right groin site verified by team. 14:19:39 Fire Safety Assessment: A--An alcohol-based skin anteseptic being used preoperatively., C--Open oxygen or nitrous oxide is being used., D--An ESU, laser, or fiber-optic light is being used. 14:21:39 Physical assessment completed. ASA score P 2 - A patient with mild systemic disease as per Yosef Alicea MD. 14:21:52 3a) 45-59 Moderately reduced kidney function. 14:21:57 Maximum allowable contrast dose (3.7 X eGFR X 0.75)158 ml. 14:22:01 Sedation plan: IV Moderate Sedation Medication:Versed, Fentanyl 14:22:20 Versed 2 mg I.V. was administered by Karl Portillo RN; for sedation; :: Fentanyl 50 mcg I.V. was administered by Karl Portillo RN; for sedation; 14:23:03 Procedure started. 14:23:08 Local anesthetic to right femoral artery with Lidocaine 2% by Yosef Alicea MD.INITIAL ACCESS ONLY 14:23:15 A 5 Fr sheath was inserted into the Right Femoral artery 14:24:10 A MULTIPACK Pigtail 5 Fr catheter was advanced over the wire and used for Procedure. 14:25: LV gram done using MCGHEE 14:: Injector settings: Ml/sec: 10, Volume: 20, 14:25:24 LV hemodynamics recorded. 14::28 EF : 60 % 14:25:33 Catheter exchanged over wire. 14::37 A MULTIPACK JL 4.0 5Fr catheter was advanced over the wire and used for Procedure. 14:: LCA angiography performed. 14::59 Versed 0.5 mg I.V. was administered by Karl Portillo RN; for sedation; 14::41 Catheter exchanged over wire. 14:28:44 A MULTIPACK 3DRC 5Fr catheter was advanced over the wire and used for Procedure. 14:29:09 ACCDominant side:Right 14:30:34 Fentanyl 50 mcg I.V. was administered by Karl Portillo RN; for sedation; 14:31:44 GUIDE 5FR AR2.0 catheter ([id number]) opened to sterile field. 14:31:45 INFLATOR Merit BasixCompak (OV3656) opened to sterile field. 14:31:45 [place] Verrata Plus pressure wire (41184D) opened to sterile field. 14:31:49 Catheter removed. 14:31:54 5 Fr ar 2 guide catheter was inserted over the wire 14:31:58 FFR/IFR wire advanced. 14:32:38 Wire advanced across lesion. 14:33:12 mRCA lesion measured at 0.83 with IFR 14:33:37 ACC Pre-intervention GEMA Flow is 3. 14:33:44 Pre PCI Site: [place] mRCA has 70% stenosis. 14:33:51 Heparin Bolus 4000 units I.V. was administered by Karl Portillo RN; for anticoagulation; verified with dr alicea 14:35:05 Integrilin (Bolus 2mg/ml) 9 ml I.V. was administered by Karl Portillo RN; for antiplatelet therapy; wasted 1 ml of vial 14:35:06 Place stent Inflation Number: 1 A COBRA RX 4.0 X 24 Stent was prepped and advanced across the Mid RCA . The stent was deployed at 21 NEENA for 0:10 (min:sec) . 14:35:21 ACT drawn and resulted at 168 seconds. (normal therapeutic range 180-240 seconds). 14:35:38 Post PCI Site: [place] mRCA has 0% stenosis. 14:35:45 ACC Post-intervention GEMA Flow is 3. 14:35:51 Stent catheter was removed intact over wire. 14:35:53 Wire removed. 14:35:53 Guide catheter removed. 14:35:55 EXOSEAL 5Fr (EX500) opened to sterile field. 14:36:09 Sheath removed intact; hemostasis achieved with Exoseal to the Right Femoral artery. 14:36:11 Procedure ended.(Physican Out) 14:37:44 Fluoroscopy time 03.10 minutes. 14:37:49 Fluoroscopy dose: 873 mGy 14:37:49 Flurop Dose total: 873 14:37:56 Dose Area Product 50160 mGy/cm. 14:38:00 Contrast amount:Isovue 300 90ml. 14:38:25 Maximum allowable dose exceeded? No. 14:38:27 Sharps counted by scrub and verified by R.N. 14:38:31 Insertion/operative site no bleeding no hematoma. 14:38:33 Post-op/insertion site Right Femoral artery dressed using a 4 x 4 and Tegaderm. 14:38:37 Post right femoral artery:stable, soft, clean and dry 14:38:38 Post Procedure Pulses reassessed and unchanged 14:38:40 Post-procedure physical assessment completed. ASA score P 2 - A patient with mild systemic disease as per Yosef Alicea MD. 14:38:43 Post procedure rhythm: unchanged. 14:38:47 Estimated blood loss: 10 ml 14:38:48 Post procedure instruction explained to patient.Patient verbalizes understanding. 14:38:48 Patient needs reinforcement of post procedure teaching. 14:39:03 Procedure type changed to Cath procedure, Diagnostic procedure, LHC, LHC w/Coronaries, FFR/IVUS, FFR Initial, Sedation Charges, Moderate Sedation up to 15 minutes, PCI procedure, Coronary Stent, Coronary Stent Initial 14:39:23 Procedure and supply charges have been captured, reviewed, submitted and are correct. 14:39:25 Procedure Complication : No complications 14:39:27 Vital chart was stopped 14:39:27 See physician's report for complete and final results. 14:39:30 Report given to Pre/Post Procedure Room. 14:39:33 Patient transfered to Pre/Post Procedure Room with Stretcher. 14:39:39 Procedure ended. 14:39:39 Full Disclosure recording stopped 14:41:00 ACC-PCI Only Patient was given prescriptions, or instructed by Yosef Alicea MD to start/continue the following medications upon discharge: Aspirin, Plavix 14:41:02 End room use (Document Last) 14:44:15 Plavix 600 mg P.O. was administered by Karl Portillo RN; for antiplatelet therapy; Intervention Summary Intervention Notes Time ActionType Lesion and Equipment Action# Pressure Duration Attributes Used 14:35:06 Place stent Mid RCA COBRA RX 1 21 00:10 4.0 X 24 Stent Device Usage Item Name Manufacture Quantity Catalog Hospital Part Current Minimal Lot# / Number Charge Number Stock Stock Serial# Code ACIST Syringe Acist 1 81700 903608 684427 693653 20 (31941) Medical Systems Inc Bag Decanter Microtek 1 2001S 423850 25880 076645 5 (2001S) Medical Inc. Medline Cath Medline 1 [id number] 497111 85814 613798 5 Pack ([id number]) ACIST Hand Acist 1 38755 469865 848342 263902 5 Control Medical (76693) Systems Inc ACIST Manifold Acist 1 30453 121363 883525 649547 5 (30763) Medical Systems Inc DIAGNOSTIC Cardinal 1 QV4688 540056 04200 805203 30 Multipack 5Fr Health catheter set (UG6673) Tegaderm 4 x 4 3M 1 1626W 356273 803601 724504 5 (1626W) EMERALD Guide Cardinal 1 502-455 189514 716461 757529 5 Wire (502-455) Health SHEATH 5FR Terumo 1 YEJ977 629461 339123 124453 5 Monarch (QPC166) MULTIPACK Cardinal 1 404953 5 Pigtail 5 Fr Health catheter MULTIPACK JL Cardinal 1 236631 5 4.0 5Fr Health catheter MULTIPACK 3DRC Cardinal 1 772480 5 5Fr catheter Health GUIDE 5FR Medtronic 1 [id number] 814243 057386 916203 1 AR2.0 catheter (PC6VE04) INFLATOR Merit Merit 1 DO3234 127532 723405 844534 15 [facility] (QN3234) [place] 1 25120V 355284 [id number] 761295 5 Verrata Plus pressure wire (53137D) COBRA RX 4.0 X Celonova 1 026098 [id number] 3792352 1 [id number] 24 stent Biosciences () EXOSEAL 5Fr Cardinal 1 EX500 932418 749179 687146 10 (EX500) Health Signature Audit [place] Stage Time Signature Unsigned Intra-Procedure 05/22/2019 Yosef Alicea 2:42:39 PM Intra-Procedure 05/22/2019 Karl Portillo RN 2:43:38 PM Intra-Procedure 05/22/2019 Ross Shaw 2:44:56 PM RT(R) [id number] [place] [address]
[2019-05-22] MEDS ORDERED: FLUTICASONE PRO16 GM NASAL (10:14)
[2019-05-22] MEDS ORDERED: LISINOPRIL-HCT1 EAC7 PO (10:15)
[2019-05-22] MEDS ORDERED: PROBIOTIC BLEN1 EACH PO (10:17)
[2019-05-22] MEDS ORDERED: NEURONTIN800 MG PO (10:18)
[2019-05-22] MEDS ORDERED: TRUSOPT 2 % OPT10 ML EACH EYE (10:22)
[2019-05-22] MEDS ORDERED: LUMIGAN 0.01%2.5 ML EACH EYE (10:23)
[2019-05-22 10:31] VITALS: BP 161/70; Ht 154.9 cm; Wt 100.0 kg
[2019-05-22 10:42] LABS: BASOPHILS 0.3 % (0-2); EOSINOPHILS 2.5 % (0-7); HEMATOCRIT 35.3 % (36.0-48.0); HEMOGLOBIN 12.1 g/dL (12-16); IMMATURE GRANULOCYTES 0.3 % (0-5); LYMPHOCYTES 22.7 % (15-50); MCH 30.9 pg (26.0-34.0); MCHC 34.3 g/dL (31.0-37.0); MCV 90.1 fL (80.0-100.0); MONOCYTES 12.4 % (2-11); NEUTROPHILS 61.8 % (40-80); PLATELET COUNT 254 10x3/uL (130-400); RBC 3.92 10x6/uL (4.00-5.40); RDW 13.2 % (11.5-14.5); WBC 6.8 10x3/uL (4.8-10.8)
[2019-05-22 11:01] LABS: ANION GAP 10.4 mmol/L (8-16); CALCIUM 8.7 mg/dL (8.5-10.1); CARBON DIOXIDE 30.3 mmol/L (21.0-32.0); CHOL - HDL RATIO 2.9 ratio (2.3-4.1); LDL-HDL RATIO 1.5 ratio (1.5-3.5); POTASSIUM - SERUM 4.7 mmol/L (3.5-5.1)
[2019-05-22] MEDS ORDERED: PLAVIX75 MG PO (14:47)
--- NOTE | 2019-05-22 15:00 | NUR ---
PT ARRIVED BY STRETCHER. PLACED ON MONITORS. ASSESSMENT COMPLETED. VSS. FAMILY AT BEDSIDE. DR. TOBAR ROUNDED AND SPOKE WITH PT'S FAMILY.
--- NOTE | 2019-05-22 15:15 | NUR ---
PT RESTING COMFORTABLY. VSS. RIGHT GROIN DRESSING C/D/I. NO S/S OF HEMATOMA NOTED. CALL LIGHT WITHIN REACH. FAMILY AT BEDSIDE.
--- NOTE | 2019-05-22 15:45 | NUR ---
PT ON BEDPAN. VOIDED APPROX 350CC OF CLEAR YELLOW URINE. BELÉN-CARE GIVEN AND PT PLACED ON DRY PAD. VSS. RIGHT GROIN DRESSING C/D/I. NO S/S OF HEMATOMA NOTED. PT GIVEN DIET SPRITE TO SIP ON. C/O SOME MILD INDIGESTION FROM PLAVIX.
--- NOTE | 2019-05-22 16:15 | NUR ---
PT RESTING COMFORTABLY. VSS. RIGHT GROIN DRESSING C/D/I. NO S/S OF HEMATOMA NOTED. CALL LIGHT WITHIN REACH. FAMILY AT BEDSIDE.
--- NOTE | 2019-05-22 17:00 | NUR ---
PT RESTING COMFORTABLY. VSS. RIGHT GROIN DRESSING C/D/I. NO S/S OF HEMATOMA NOTED. RIGHT PEDAL PULSE PALPABLE. VSS. CALL LIGHT WITHIN REACH. FAMILY AT BEDSIDE.
--- NOTE | 2019-05-22 17:25 | NUR ---
HEAD OF BED INC TO 30 DEGREES. TOLERATED WELL. VSS. RIGHT GROIN DRESSING C/D/I. NO S/S OF HEMATOMA NOTED. CALL LIGHT WITHIN REACH.
--- NOTE | 2019-05-22 17:50 | NUR ---
PIV D/C'D WITH CATH TIP INTACT. PT TOLERATED WELL. VSS. FAMILY AT BEDSIDE TO ASSIST PT GETTING UP TO GET DRESSED.
--- NOTE | 2019-05-22 18:00 | NUR ---
DISCUSSED DISCHARGE INSTRUCTIONS WITH PT AND PT'S FAMILY. THEY VOICED UNDERSTANDING. PT AMBULATED TO RESTROOM AND VOIDED WITHOUT DIFFICULTY.
--- NOTE | 2019-05-22 18:20 | NUR ---
PT TAKEN OUT TO VEHICLE BY WHEELCHAIR. NO S/S OF DISTRESS NOTED. ALL BELONGINGS AND PAPERWORK IN HAND.
--- NOTE | 2019-05-24 09:14 | OP ---
PATIENT NAME: MELISSA CARLIN V MEDICAL RECORD: [id number] :41 LOCATION:D.[facility] ADMISSION DATE: SURGEON: SUNNY TOBAR MD DATE OF OPERATION: 05/22/2019 PROCEDURES: 1. PTCA stent RCA. 2. Left heart catheterization. 3. Selective coronary angiography. 4. Left ventriculogram. 5. IFR. INDICATION: Angina, coronary artery disease, abnormal nuclear stress test. DESCRIPTION OF PROCEDURE: After informed consent was obtained and after a detailed description of risks, benefits as well as alternative therapies, the patient elected to proceed with angiogram and angioplasty. The right femoral area was prepped and draped in normal sterile fashion. The right femoral artery was cannulated via modified Seldinger technique with placement of 6-Upper Sorbian sheath. All catheters were exchanged through this sheath. FINDINGS: Left ventriculogram was performed in standard 30-degree MCGHEE view, reveals good cardiac wall motion, ejection fraction is 60%. SELECTIVE CORONARY ANGIOGRAPHY: 1. Left main is with no significant angiographic disease. 2. Left anterior descending has previously placed stents, these are widely patent with no significant restenosis. No disease elsewise throughout the LAD or its branches. 3. Left circumflex has moderate irregularities, but no flow-limiting stenosis. 4. The right coronary has previously placed stents, these are widely patent; however, there is an area between the stents and appears to be 70% stenosed. The IFR was abnormal at 0.83 throughout. PTCA STENT OF THE RCA: The stent used was a 4.0 x 24 mm Cobra. Result was 0% residual stenosis. OVERALL IMPRESSION: Successful percutaneous transluminal coronary angioplasty stent of the right coronary artery going from 70% initial stenosis with an abnormal IFR to 0% residual. TRANSINT:[id number] Voice Confirmation ID: [id number] DOCUMENT ID: [id number] SUNNY TOBAR MD at 0914 CC: [id number] DICTATION DATE: 05/22/19 1440 CNC MECHANIC: 05/22/19 2329 DEP CLI 05/22/19 [facility] [address] [id number]
== END 2019-05-22 18:20 | disposition home or self-care (01) ==
LOC: D.CATH 09:23
PROVIDERS: ATTEND Internal Medicine Interventional Cardiology
DX: I25.119 Atherosclerotic heart disease of native coronary artery with unspecified angina pectoris (principal); R94.30 Abnormal result of cardiovascular function study, unspecified

== ENCOUNTER → 2020-02-13 22:28 | Outpatient (CLI) | payer MEDICARE ==
[2019-05-22 10:31] VITALS: BMI 41.6
[~2020-02-13 22:28] MED LIST changes: +FLUTICASONE PRO16 GM NASAL; +LISINOPRIL-HCT1 EAC7 PO; +LUMIGAN 0.01%2.5 ML EACH EYE; +NEURONTIN800 MG PO; +PROBIOTIC BLEN1 EACH PO; +TRUSOPT 2 % OPT10 ML EACH EYE
== END | disposition home or self-care (01) ==
LOC: D.MAMMO 12-21 15:00
PROVIDERS: ATTEND Family Medicine
DX: Z12.31 Encounter for screening mammogram for malignant neoplasm of breast (principal)

== ENCOUNTER → 2020-04-16 14:57 | Outpatient (CLI) | payer MEDICARE, MEDICAID ==
[2019-05-22 10:31] VITALS: BMI 41.6
== END | disposition home or self-care (01) ==
LOC: D.CT 14:57
PROVIDERS: ATTEND Family Medicine
DX: R10.11 Right upper quadrant pain (principal)

== ENCOUNTER 2020-05-02 17:16 | Inpatient (IN) | payer MEDICARE, MEDICAID ==
[~2020-05-02] VITALS: Ht 158.8 cm; Wt 107.5 kg
--- NOTE | 2020-05-02 17:48 | NUR ---
REC'D TO ROOM 2231 AT THIS TIME AWAKE AND ALERT. EVEN AND UNLABORED WITH NO DISTRESS NOTED. CAN EXPRESS NEEDS AND WANTS. EATING SUPPER AT THIS TIME. ASSESSMENT COMPLETED. C/L IN REACH AT BEDSIDE.
[2020-05-02 19:40] LABS: BASOPHILS 0.7 % (0-2); EOSINOPHILS 2.8 % (0-7); HEMOGLOBIN 13.6 g/dL (12-16); IMMATURE GRANULOCYTES 0.2 % (0-5); LYMPHOCYTES 22.9 % (15-50); MCH 30.4 pg (26.0-34.0); MCHC 33.2 g/dL (31.0-37.0); MCV 91.5 fL (80.0-100.0); MEAN PLATELET VOLUME 10.1 fL (7.4-10.4); MONOCYTES 10.1 % (2-11); NEUTROPHILS 63.3 % (40-80); PLATELET COUNT 319 10x3/uL (130-400); RBC 4.48 10x6/uL (4.00-5.40); RDW 12.5 % (11.5-14.5); WBC 8.2 10x3/uL (4.8-10.8)
[2020-05-02 19:47] LABS: ALBUMIN 4.2 g/dL (3.4-5.0); BILIRUBIN - TOTAL 0.28 mg/dL (0.2-1.3); CALCIUM 9.2 mg/dL (8.5-10.1); CARBON DIOXIDE 31.2 mmol/L (21.0-32.0); CREATININE - SERUM 1.5 mg/dL (0.6-1.3); MAGNESIUM - SERUM 1.8 mg/dL (1.8-2.4); PHOSPHOROUS 4.9 mg/dL (2.5-4.9); POTASSIUM - SERUM 5.2 mmol/L (3.5-5.1); PROTEIN - SERUM 7.7 g/dL (6.4-8.2)
[2020-05-02 21:47] LABS: BILIRUBIN NEGATIVE (NEGATIVE); KETONE NEGATIVE (NEGATIVE); NITRITE NEGATIVE (NEGATIVE); UROBILINOGEN NORMAL (NORMAL)
[2020-05-02 23:36] VITALS: BP 161/69; BMI 42.7
[2020-05-03 04:00] VITALS: BP 152/65; BP 161/69
[2020-05-03 05:55] LABS: BASOPHILS 0.7 % (0-2); EOSINOPHILS 4.5 % (0-7); HEMATOCRIT 40.4 % (36.0-48.0); HEMOGLOBIN 13.2 g/dL (12-16); IMMATURE GRANULOCYTES 0.5 % (0-5); LYMPHOCYTES 26.8 % (15-50); MCH 30.1 pg (26.0-34.0); MCHC 32.7 g/dL (31.0-37.0); MCV 92.2 fL (80.0-100.0); MEAN PLATELET VOLUME 10.1 fL (7.4-10.4); MONOCYTES 14.6 % (2-11); NEUTROPHILS 52.9 % (40-80); RBC 4.38 10x6/uL (4.00-5.40); RDW 12.6 % (11.5-14.5)
[2020-05-03 06:06] LABS: APTT 31.8 SECONDS (22.8-39.4); INR 0.93 (0.85-1.17); PROTIME 12.4 SECONDS (11.6-15.0)
[2020-05-03 06:09] LABS: PLATELET COUNT 254 10x3/uL (130-400); WBC 5.8 10x3/uL (4.8-10.8)
[2020-05-03 06:30] LABS: CALCIUM 8.7 mg/dL (8.5-10.1); CARBON DIOXIDE 31.2 mmol/L (21.0-32.0); CREATININE - SERUM 1.2 mg/dL (0.6-1.3); MAGNESIUM - SERUM 1.8 mg/dL (1.8-2.4); PHOSPHOROUS 4.8 mg/dL (2.5-4.9)
[2020-05-03 06:36] LABS: POTASSIUM - SERUM 4.2 mmol/L (3.5-5.1)
[2020-05-03 10:00] VITALS: BP 126/69
[2020-05-03 12:42] VITALS: BP 120/56
--- NOTE | 2020-05-03 16:28 | NUR ---
I have reviewed this patient and I concur with the Shift Assessment completed by the Licensed Practical Nurse today this shift.
--- NOTE | 2020-05-03 19:16 | NUR ---
REC'D SITTING ON SIDE OF BED AWAKE AND ALERT. RESP EVEN AND UNLABORED WITH NO DISTRESS NOTED. HAS O2 IN USE VIA NC. TURN AND REPOSITION SELF. AMBULATED WITH SLOW AND STEADY GAIT. ASSESSMENT COMPLETED. C/L IN REACH AT BEDSIDE.
[2020-05-03 20:00] VITALS: BP 144/72
--- NOTE | 2020-05-03 20:05 | NUR ---
LYING IN BED. ALERT AND ORIENTED X4. RESP NONLABORED. O2 @2LNC. BLE ARE WARM TO TOUCH AND RED. EDEMA NOTED TO BLE. AMB WITH WALKER. RATES PAIN IN BLE 2. PROD COUGH NOTED WITH "MAURICIO" SPUTUM. SOB WITH MIN EXERTION. NS @ 75 MLHR INFUSING IN LT FOREARM. SR ELEVATED X2. CL IN REACH.
[2020-05-04] VITALS: BP 155/53
--- NOTE | 2020-05-04 02:20 | NUR ---
MEDICATED WITH NORCO FOR C/O PAIN IN BLE RATING 6. CL IN REACH.
[2020-05-04 04:00] VITALS: BP 143/62
[2020-05-04 06:33] LABS: BASOPHILS 0.9 % (0-2); EOSINOPHILS 4.6 % (0-7); HEMATOCRIT 36.6 % (36.0-48.0); HEMOGLOBIN 11.9 g/dL (12-16); IMMATURE GRANULOCYTES 0.4 % (0-5); LYMPHOCYTES 22.5 % (15-50); MCH 30.2 pg (26.0-34.0); MCHC 32.5 g/dL (31.0-37.0); MCV 92.9 fL (80.0-100.0); MEAN PLATELET VOLUME 9.7 fL (7.4-10.4); MONOCYTES 12.7 % (2-11); NEUTROPHILS 58.9 % (40-80); PLATELET COUNT 222 10x3/uL (130-400); RBC 3.94 10x6/uL (4.00-5.40); RDW 12.6 % (11.5-14.5); WBC 5.7 10x3/uL (4.8-10.8)
[2020-05-04 06:45] LABS: ANION GAP 10.6 mmol/L (8-16); CALCIUM 8.6 mg/dL (8.5-10.1); CARBON DIOXIDE 28.5 mmol/L (21.0-32.0); CREATININE - SERUM 0.9 mg/dL (0.6-1.3); MAGNESIUM - SERUM 1.9 mg/dL (1.8-2.4); PHOSPHOROUS 4.2 mg/dL (2.5-4.9); POTASSIUM - SERUM 4.1 mmol/L (3.5-5.1); VANCOMYCIN - RANDOM 9.4 ug/mL (10.0-20.0)
--- NOTE | 2020-05-04 09:05 | NUR ---
PT UP COMING FROM THE BATHROOM. STATES THAT SHE AND HER BED NEEDS TO BE CHANGED. I DID SO. STATES SHE IS INCONTINENT. MEDS GIVEN PER EMAR. PT IN ROOM. SITTING IN CHAIR WHEN I LEFT. CL IN REACH. WCTM
[2020-05-04 09:17] VITALS: BP 143/62
[2020-05-04 13:08] VITALS: BP 157/59
--- NOTE | 2020-05-04 14:55 | NUR ---
PT SITTING ON SIDE OF BED PLAYING GO FISH WITH DARLIN. NO NEEDS AT THIS TIME. WCTM
--- NOTE | 2020-05-04 17:15 | NUR ---
DAUGHTER PIA IN ROOM. CO OF PAIN WHERE I INJECTED THE LOVENOX THIS AM. THERE IS A HALF DOLLAR SIZE BRUISE. DAUGHTER ASSISTED IN CLEANING PT UP. CL IN REACH. MORE BRIEFS AND WIPES PROVIDED. JAYCEE
[2020-05-04 17:29] VITALS: BP 160/66
[2020-05-04 20:00] VITALS: BP 145/63
[2020-05-05] VITALS: BP 148/63
[2020-05-05 04:00] VITALS: BP 155/57
[2020-05-05 08:00] LABS: EOSINOPHILS 4.1 % (0-7); HEMOGLOBIN 11.9 g/dL (12-16); IMMATURE GRANULOCYTES 0.2 % (0-5); LYMPHOCYTES 20.6 % (15-50); MCHC 32.2 g/dL (31.0-37.0); MCV 93.2 fL (80.0-100.0); MEAN PLATELET VOLUME 9.8 fL (7.4-10.4); MONOCYTES 13.7 % (2-11); NEUTROPHILS 60.4 % (40-80); PLATELET COUNT 201 10x3/uL (130-400); RBC 3.97 10x6/uL (4.00-5.40); RDW 12.7 % (11.5-14.5); WBC 6.1 10x3/uL (4.8-10.8)
[2020-05-05 08:16] LABS: ANION GAP 8.8 mmol/L (8-16); CALCIUM 8.5 mg/dL (8.5-10.1); CARBON DIOXIDE 31.4 mmol/L (21.0-32.0); MAGNESIUM - SERUM 1.8 mg/dL (1.8-2.4); PHOSPHOROUS 3.2 mg/dL (2.5-4.9); POTASSIUM - SERUM 4.2 mmol/L (3.5-5.1); VANCOMYCIN - TROUGH 18.5 ug/mL (10.0-20.0)
--- NOTE | 2020-05-05 08:32 | NUR ---
PT SITTING UP ON SIDE OF BED EATING BREAKFAST. GOT PT A FRESH CUP OF COFFEE TO HOPEFULLY MOVE HER BOWELS. CL IN REACH. NO FURTHER NEEDS AT THIS TIME. WCTM
[2020-05-05 09:27] VITALS: BP 154/64
[2020-05-05 13:45] VITALS: BP 136/63
--- NOTE | 2020-05-05 15:49 | NUR ---
PT GIVEN A SHOWER BY SHARMILA LAMA. NO NEEDS AT THIS TIME. CL IN REACH. WCTM
[2020-05-05 20:28] VITALS: BP 155/54
[2020-05-06 00:24] VITALS: BP 147/56
--- NOTE | 2020-05-06 01:57 | NUR ---
REC'D WALKING ROUNDS CHGE OF SHIFT SITTING ON SIDE OF BED DRINKING H2O DENIES ANY DISCOMFORT AT PRESENT TIME.ARMS HAND LEGS AND FEET WITH 1-2t EDEMA REMAINING STILL C/O SOME DECREASE IN SENSATION.PEDAL PULSE PRESENT. WIGGLES TOES AND DORSIFLEXES.WILL CONTINUE TO MONITOR FOR ANY CHGES IN NEUROVASCULAR STATUS AND FOLLOW CURRENT PLAN OF CARE.
[2020-05-06 04:51] VITALS: BP 151/62
[2020-05-06 06:34] LABS: BASOPHILS 0.8 % (0-2); EOSINOPHILS 3.1 % (0-7); HEMATOCRIT 33.8 % (36.0-48.0); HEMOGLOBIN 10.9 g/dL (12-16); IMMATURE GRANULOCYTES 0.3 % (0-5); LYMPHOCYTES 18.2 % (15-50); MCH 29.9 pg (26.0-34.0); MCHC 32.2 g/dL (31.0-37.0); MCV 92.6 fL (80.0-100.0); MEAN PLATELET VOLUME 10.1 fL (7.4-10.4); MONOCYTES 16.3 % (2-11); NEUTROPHILS 61.3 % (40-80); PLATELET COUNT 208 10x3/uL (130-400); RBC 3.65 10x6/uL (4.00-5.40); RDW 12.7 % (11.5-14.5); WBC 6.2 10x3/uL (4.8-10.8)
[2020-05-06 06:48] LABS: ANION GAP 12.1 mmol/L (8-16); CALCIUM 8.4 mg/dL (8.5-10.1); CARBON DIOXIDE 29.9 mmol/L (21.0-32.0); CREATININE - SERUM 0.9 mg/dL (0.6-1.3); MAGNESIUM - SERUM 1.8 mg/dL (1.8-2.4); PHOSPHOROUS 3.2 mg/dL (2.5-4.9)
[2020-05-06 08:41] VITALS: BP 137/44
--- NOTE | 2020-05-06 12:08 | NUR ---
PATIENT UP TO CHAIR. ORAL HYGIENE COMPLETED. DENIES PAIN OR NEEDS. WILL CONTINUE TO MONITOR.
[2020-05-06 13:12] VITALS: BP 129/59
--- NOTE | 2020-05-06 14:21 | NUR ---
OT NOTE: PT DOING MUCH BETTER TODAY. PERFORMED TOILETING WITH MIN ASSIST; IN ROOM AMBULATION WITH FILAMENT MAKER; BED MOB WITH MIN ASSIST; SINK HYGIENE WITH CGA; AMB INTO HALLWAY FOR ENDURANCE WITH 2L02 X 150+ FT. FATIMAH CARLSON OTR/Virgil
--- NOTE | 2020-05-06 16:10 | NUR ---
OT NOTE: PT COMPLETED ADL MOB WITH RW WITH CGA. PT COMPLETED STANDING AT SINK LEVEL WITH CGA. PT COMPLETED UE AROM WITH WALKER MANAGMENT. PT DID WELL. 130-850 THANK YOU, KOMAL MCNEILL
[2020-05-06 16:24] VITALS: BP 132/61
[2020-05-06 20:00] VITALS: BP 199/79
--- NOTE | 2020-05-06 21:08 | NUR ---
REC'D SITTING UP IN BEDSIDE CHAIR WATCHING TV.2t EDEMA AND REDNESS STILL TO LOWER EXT X2.PEDAL PULSES PRESENT WIGGLES TOES AND DORSIFLEXES WITHOUT DIFFICULTH WILL CONTINUE TO MONITOR FOR ANY CHGES. IN NEUROVASCULAR STATUS AND FOLLOW CURRENT PLAN OF CARE
[2020-05-07 04:00] VITALS: BP 121/64
[2020-05-07 06:42] LABS: BASOPHILS 0.9 % (0-2); EOSINOPHILS 3.3 % (0-7); HEMATOCRIT 35.7 % (36.0-48.0); HEMOGLOBIN 11.7 g/dL (12-16); IMMATURE GRANULOCYTES 0.3 % (0-5); LYMPHOCYTES 26.1 % (15-50); MCH 30.5 pg (26.0-34.0); MCHC 32.8 g/dL (31.0-37.0); MEAN PLATELET VOLUME 9.8 fL (7.4-10.4); MONOCYTES 16.9 % (2-11); NEUTROPHILS 52.5 % (40-80); PLATELET COUNT 198 10x3/uL (130-400); RBC 3.84 10x6/uL (4.00-5.40); RDW 12.8 % (11.5-14.5); WBC 5.8 10x3/uL (4.8-10.8)
[2020-05-07 06:48] LABS: ANION GAP 8.7 mmol/L (8-16); CALCIUM 8.6 mg/dL (8.5-10.1); CARBON DIOXIDE 33.1 mmol/L (21.0-32.0); CREATININE - SERUM 0.8 mg/dL (0.6-1.3); MAGNESIUM - SERUM 1.8 mg/dL (1.8-2.4); PHOSPHOROUS 3.4 mg/dL (2.5-4.9); POTASSIUM - SERUM 3.8 mmol/L (3.5-5.1)
[2020-05-07 09:36] VITALS: BP 152/69
--- NOTE | 2020-05-07 10:56 | NUR ---
PATIENT UP TO CHAIR. DENIES PAIN OR NEEDS. WILL CONTINUE TO MONITOR THROUGHOUT THE DAY.
[2020-05-07 13:24] VITALS: BP 154/54
[2020-05-07 13:51] VITALS: Ht 158.8 cm; Wt 107.5 kg
[2020-05-07 18:21] VITALS: BP 169/67
[2020-05-07 20:00] VITALS: BP 181/77
[2020-05-08] VITALS: BP 131/53
--- NOTE | 2020-05-08 00:07 | NUR ---
REC'D CHGE OF SHIFT SITTING ON SIDE OF BED STATES THIS IV HAS BEEN LEAKING ALL DAY WHAT ARE YOU GONNA DO ABOUT IT? NU LEAKAGE SEEN NO BLOOD RETURN NO SWELLING OR REDNESS AT SITE REFUSES IV TO BE RESITED OR TAKEN OUT.REFUSED FOR LAB TO BE DRAWN DISCUSSED IMPORTANCE OF LAB ALSO HELPS REGULATE DOSAGE INCREASE OR DECREASE IN ORDER TO MAINTAIN A THERAPUTIC LEVEL STATES I'M NOT BEING STUCK ANY MORE YOU HEAR ME.MICHAEL ANDERSON APN CALLED AND NOTIFIED OF SITUATION STATES WILL PUT ORDER IN FOR VASCULAR NURSE FOR [facility] IN AM DISCUSSED WITH PATIENT AGREES BUT CONTINUES TO REFUSE CURRENT IV TO BE TAKEN OUT. WILL CONTINUE TO MONITOR AND FOLLOW CURRENT PLAN OF CARE
--- NOTE | 2020-05-08 05:04 | NUR ---
I have reviewed this patient and I concur with the Shift Assessment completed by the Licensed Practical Nurse today this shift.
[2020-05-08 07:17] LABS: BASOPHILS 0.9 % (0-2); EOSINOPHILS 2.9 % (0-7); HEMATOCRIT 36.7 % (36.0-48.0); HEMOGLOBIN 11.8 g/dL (12-16); IMMATURE GRANULOCYTES 0.3 % (0-5); LYMPHOCYTES 17.8 % (15-50); MCH 29.9 pg (26.0-34.0); MCHC 32.2 g/dL (31.0-37.0); MCV 93.1 fL (80.0-100.0); MEAN PLATELET VOLUME 9.8 fL (7.4-10.4); MONOCYTES 11.5 % (2-11); NEUTROPHILS 66.6 % (40-80); PLATELET COUNT 215 10x3/uL (130-400); RBC 3.94 10x6/uL (4.00-5.40); RDW 12.7 % (11.5-14.5)
[2020-05-08 07:19] LABS: WBC 7.5 10x3/uL (4.8-10.8)
[2020-05-08 07:34] LABS: ALBUMIN 3.3 g/dL (3.4-5.0); ANION GAP 6.6 mmol/L (8-16); BILIRUBIN - TOTAL 0.28 mg/dL (0.2-1.3); CALCIUM 8.8 mg/dL (8.5-10.1); CARBON DIOXIDE 33.8 mmol/L (21.0-32.0); CREATININE - SERUM 0.9 mg/dL (0.6-1.3); MAGNESIUM - SERUM 1.6 mg/dL (1.8-2.4); POTASSIUM - SERUM 3.4 mmol/L (3.5-5.1); PROTEIN - SERUM 6.9 g/dL (6.4-8.2); VANCOMYCIN - TROUGH 12.9 ug/mL (10.0-20.0)
[2020-05-08 09:48] VITALS: BP 135/51
[2020-05-08 12:00] VITALS: BP 147/67
[2020-05-08 17:14] VITALS: BP 169/81
[2020-05-08 20:00] VITALS: BP 143/76
--- NOTE | 2020-05-08 20:00 | NUR ---
PATIENT RESTING IN BED WITH EYES CLOSED. NO S/S OF ACUTE DISTRESS. NO C/O AT THIS TIME. PATIENT IS ON 2L NASAL CANNULA. PATIENT HAS LEFT FOREARM, NORMAL SALINE @ 75 ML/HR. IV IS PATENT WITHOUT REDNESS, SWELLING, OR TENDERNESS. PATIENT IS INCONTINENT AT TIMES, WEARS BRIEFS. CALL LIGHT WITHIN REACH. WILL CONTINUE TO MONITOR.
--- NOTE | 2020-05-08 20:11 | NUR ---
0700 BEDSIDE REPORT RECEIVED ASSESSMENT COMPLETE ASSISTED TO REPOSITION IN BED TO EAT BREAKFAST APPRINCESSE ENRIQUE
--- NOTE | 2020-05-08 20:12 | NUR ---
1100 ASSIST TO BATHROOM WITH STAND BY ASSIST
--- NOTE | 2020-05-08 20:27 | NUR ---
CALLED PT DAUGHTER WITH UPDATE ON PT. REASSURED HER OF HER THROUGHT CARE
[2020-05-09] VITALS: BP 177/68
[2020-05-09 04:00] VITALS: BP 161/63
--- NOTE | 2020-05-09 05:13 | NUR ---
I have reviewed this patient and I concur with the Shift Assessment completed by the Licensed Practical Nurse today this shift.
[2020-05-09 06:33] LABS: EOSINOPHILS 3.9 % (0-7); HEMATOCRIT 36.3 % (36.0-48.0); HEMOGLOBIN 11.7 g/dL (12-16); IMMATURE GRANULOCYTES 0.4 % (0-5); LYMPHOCYTES 24.5 % (15-50); MCH 30.2 pg (26.0-34.0); MCHC 32.2 g/dL (31.0-37.0); MCV 93.6 fL (80.0-100.0); MEAN PLATELET VOLUME 10.2 fL (7.4-10.4); MONOCYTES 15.3 % (2-11); NEUTROPHILS 54.9 % (40-80); PLATELET COUNT 223 10x3/uL (130-400); RBC 3.88 10x6/uL (4.00-5.40); RDW 12.9 % (11.5-14.5); WBC 6.9 10x3/uL (4.8-10.8)
[2020-05-09 06:57] LABS: ALBUMIN 3.4 g/dL (3.4-5.0); ANION GAP 8.5 mmol/L (8-16); BILIRUBIN - TOTAL 0.3 mg/dL (0.2-1.3); CALCIUM 8.8 mg/dL (8.5-10.1); CARBON DIOXIDE 31.5 mmol/L (21.0-32.0); CREATININE - SERUM 1.1 mg/dL (0.6-1.3); MAGNESIUM - SERUM 1.8 mg/dL (1.8-2.4); PROTEIN - SERUM 6.8 g/dL (6.4-8.2)
--- NOTE | 2020-05-09 08:31 | NUR ---
The patient is awake and sitting up eating breakfast, denies needs. bilateral edema noted to lower extremities.
[2020-05-09 09:24] VITALS: BP 164/91
--- NOTE | 2020-05-09 12:29 | NUR ---
1050 PT HOOKED BACK TO 02 AND IV AFTER ORAL CARE AT SINK
[2020-05-09 13:51] VITALS: BP 122/63
--- NOTE | 2020-05-09 14:07 | NUR ---
NUTRITION F/U CHART REVIEWED. DIABETIC DIET WITH GOOD INTAKE RECENT MEALS. WILL CONTINUE TO PROVIDE DIET, MONITOR PO INTAKE. RD FOLLOWING
[2020-05-09 17:43] VITALS: BP 148/69
[2020-05-09 20:10] VITALS: BP 125/59
[2020-05-10] VITALS: BP 117/38
[2020-05-10 04:00] VITALS: BP 165/53
--- NOTE | 2020-05-10 05:15 | NUR ---
I have reviewed this patient and I concur with the Shift Assessment completed by the Licensed Practical Nurse today this shift.
[2020-05-10 07:10] LABS: BASOPHILS 0.9 % (0-2); EOSINOPHILS 3.9 % (0-7); HEMATOCRIT 33.6 % (36.0-48.0); HEMOGLOBIN 10.8 g/dL (12-16); IMMATURE GRANULOCYTES 0.3 % (0-5); LYMPHOCYTES 18.6 % (15-50); MCHC 32.1 g/dL (31.0-37.0); MCV 93.3 fL (80.0-100.0); MEAN PLATELET VOLUME 9.6 fL (7.4-10.4); MONOCYTES 15.5 % (2-11); NEUTROPHILS 60.8 % (40-80); PLATELET COUNT 199 10x3/uL (130-400); RDW 12.9 % (11.5-14.5); WBC 6.9 10x3/uL (4.8-10.8)
[2020-05-10 07:37] LABS: ALBUMIN 3.1 g/dL (3.4-5.0); ANION GAP 10.3 mmol/L (8-16); BILIRUBIN - TOTAL 0.3 mg/dL (0.2-1.3); CALCIUM 8.7 mg/dL (8.5-10.1); CARBON DIOXIDE 31.6 mmol/L (21.0-32.0); MAGNESIUM - SERUM 1.7 mg/dL (1.8-2.4); POTASSIUM - SERUM 3.9 mmol/L (3.5-5.1); PROTEIN - SERUM 6.1 g/dL (6.4-8.2); VANCOMYCIN - TROUGH 19.7 ug/mL (10.0-20.0)
[2020-05-10 07:39] LABS: CREATININE - SERUM 0.8 mg/dL (0.6-1.3)
[2020-05-10 09:54] VITALS: BP 149/39
--- NOTE | 2020-05-10 11:18 | NUR ---
PT ALERT X 4. CRACKLES TO ALL BARLOW. IV TO RIGHT FOREARM, TENDER, GOOD BLOOD RETURN. BLE FIRM TO TOUCH, SWOLLEN, REDDENED AND TENDER. PT REPORTING PAIN OF 7/10, WILL CONTINUE TO MONITOR. BED LOW, CALL LIGHT IN REACH. NO OTHER NEEDS AT THIS TIME.
[2020-05-10 16:00] VITALS: BP 185/73
--- NOTE | 2020-05-10 19:10 | NUR ---
A&O, DENIES NEEDS, BED LOWEST POSITION, CALL LIGHT IN REACH, SITTING UP ON BEDSIDE, BREATHING EVEN UNLABORED, NO S/S OF DISTRESS NOTED, IV RFA SL
[2020-05-10 20:00] VITALS: BP 158/72
[2020-05-11] VITALS: BP 194/85
[2020-05-11 04:00] VITALS: BP 150/72
--- NOTE | 2020-05-11 06:01 | NUR ---
I have reviewed this patient and I concur with the Shift Assessment completed by the Licensed Practical Nurse today this shift.
[2020-05-11 06:27] LABS: EOSINOPHILS 3.5 % (0-7); HEMATOCRIT 34.2 % (36.0-48.0); HEMOGLOBIN 10.9 g/dL (12-16); IMMATURE GRANULOCYTES 0.3 % (0-5); LYMPHOCYTES 20.5 % (15-50); MCH 29.9 pg (26.0-34.0); MCHC 31.9 g/dL (31.0-37.0); MCV 93.7 fL (80.0-100.0); MONOCYTES 17.2 % (2-11); NEUTROPHILS 57.5 % (40-80); PLATELET COUNT 207 10x3/uL (130-400); RBC 3.65 10x6/uL (4.00-5.40); RDW 12.9 % (11.5-14.5); WBC 6.9 10x3/uL (4.8-10.8)
[2020-05-11 06:49] LABS: ALBUMIN 3.1 g/dL (3.4-5.0); ANION GAP 6.6 mmol/L (8-16); BILIRUBIN - TOTAL 0.33 mg/dL (0.2-1.3); CALCIUM 8.7 mg/dL (8.5-10.1); CARBON DIOXIDE 34.1 mmol/L (21.0-32.0); CREATININE - SERUM 0.9 mg/dL (0.6-1.3); MAGNESIUM - SERUM 1.9 mg/dL (1.8-2.4); POTASSIUM - SERUM 3.7 mmol/L (3.5-5.1); PROTEIN - SERUM 6.3 g/dL (6.4-8.2)
[2020-05-11 08:46] VITALS: BP 142/78
[2020-05-11 12:44] VITALS: BP 168/65
[2020-05-11 16:42] VITALS: BP 148/72
--- NOTE | 2020-05-11 19:05 | NUR ---
ALERT AND ORIENTED, SITTING IN CHAIR, WATCHING TV. ASSESSMENT PERFORMED. ASSISTED PATIENT WITH BATHROOM DUTIES, BRIEF CHANGED. SPOKE WITH PATIENT ABOUT UPCOMING MEDICAITONS. DENIES FURTHER NEEDS AT THIS TIME. CALL LIGHT REMAINS CLOSE TO PATIENT. CPOC.
[2020-05-11 20:00] VITALS: BP 169/76
[2020-05-12] VITALS: BP 123/75
[2020-05-12 04:00] VITALS: BP 110/64
[2020-05-12 06:30] LABS: ALBUMIN 3.5 g/dL (3.4-5.0); ANION GAP 9.6 mmol/L (8-16); BILIRUBIN - TOTAL 0.38 mg/dL (0.2-1.3); CALCIUM 9.3 mg/dL (8.5-10.1); CARBON DIOXIDE 33.1 mmol/L (21.0-32.0); MAGNESIUM - SERUM 1.7 mg/dL (1.8-2.4); PROTEIN - SERUM 6.8 g/dL (6.4-8.2)
[2020-05-12 06:32] LABS: POTASSIUM - SERUM 4.7 mmol/L (3.5-5.1)
[2020-05-12 07:02] LABS: BASOPHILS 0.4 % (0-2); EOSINOPHILS 0 % (0-7); HEMATOCRIT 36.3 % (36.0-48.0); HEMOGLOBIN 11.8 g/dL (12-16); IMMATURE GRANULOCYTES 0.4 % (0-5); LYMPHOCYTES 12.7 % (15-50); MCH 30.1 pg (26.0-34.0); MCHC 32.5 g/dL (31.0-37.0); MCV 92.6 fL (80.0-100.0); MEAN PLATELET VOLUME 10.5 fL (7.4-10.4); MONOCYTES 7.5 % (2-11); RBC 3.92 10x6/uL (4.00-5.40); RDW 12.8 % (11.5-14.5)
[2020-05-12 07:04] LABS: PLATELET COUNT 291 10x3/uL (130-400); WBC 9.3 10x3/uL (4.8-10.8)
[2020-05-12 09:11] VITALS: BP 172/68
--- NOTE | 2020-05-12 10:46 | MORECARE ---
CASE MANAGEMENT DISCHARGE SUMMARY PATIENT: MELISSA CARLIN V UNIT: [id number] ADM DATE: 05/02/20 AGE: 74 : 43 SEX: F ROOM/BED: D.2231 AUTHOR: DOUG GUERRERO PHYSICIAN: REFERRING PHYSICIAN: RAE WEBBER MD DATE OF SERVICE: 05/12/20 Discharge Plan Patient Name: MELISSA CARLIN Facility: [facility]:[place] : 1945 Planned Disposition: Anticipated Discharge Date: Discharge Date: Expected LOS: Initial Reviewer: [email or web address] Initial Review Date: 05/12/2020 Generated: 05/12/20 11:46 am DCPIA - Discharge Planning Initial Assessment Updated by [email or web address]: Celia Landis on 05/12/20 10:44 am * Is the patient Alert and Oriented? Yes * PCP ALIZA * Pharmacy [facility] * Preadmission Environment Home Alone * ADLs Independent * Other Equipment WC,WALKER,02, NEBS. UNSURE OF O2 COMPANY NAME. MAY BE [facility] * Community resources currently utilized Private Duty Care * Please name any agencies selected above. [facility] * Can the patient safely return to the preadmission environment? Yes * Has this patient been hospitalized within the prior 30 days at any hospital? No Patient Name: MELISSA CARLIN Page [phone] at 1046 All edits/amendments must be made on the electronic document DICTATION DATE: 05/12/20 1046 FISHING TOOL SUPERVISOR: JESIKA 05/12/20 1046 RPT#: [id number] DC DATE: STATUS: ADM IN [facility] [address] [place] [address] END OF REPORT
--- NOTE | 2020-05-12 11:08 | MORECARE ---
CASE MANAGEMENT DISCHARGE SUMMARY PATIENT: MELISSA CARLIN V UNIT: [id number] ADM DATE: 05/02/20 AGE: 74 : 43 SEX: F ROOM/BED: D.2231 AUTHOR: CESAR,DOC PHYSICIAN: REFERRING PHYSICIAN: RAE WEBBER MD DATE OF SERVICE: 05/12/20 Discharge Plan Patient Name: MELISSA CARLIN Facility: [facility]:[place] : 1945 Planned Disposition: Anticipated Discharge Date: Discharge Date: Expected LOS: Initial Reviewer: [email or web address] Initial Review Date: 05/12/2020 Generated: 05/12/20 12:08 pm Comments DCP- Discharge Planning Updated by [email or web address]: Celia Landis on 05/12/20 9:[address] Patient Name: MELISSA CARLIN Admission Status: Elective Accout number: [id number] Admission Date: 05-02-2020 : 1945 Admission Diagnosis:CELLULITIS OF LEFT LOWER LIMB Attending: MICKIE Current LOS: 10 Anticipated DC Date: Planned Disposition: Primary Insurance: [facility] MEDICARE SOLUTIONS Discharge Planning Comments: CM met with patient at bedside after explaining CM role and obtaining verbal consent. CM discussed availability / needs of home health, REHAB and medical equipment. PATIENT HAS MEDICAL EQUIPMENT, STATES SHE COULD BENEFIT FROM REHAB. HAS USED OUTPATIENT REHAB AT [facility] FOR [facility]ATER THERAPY IN THE PAST. WHEN REVEIWING THERAPY NOTES THEY RECOMEND HOME HEALTH. CM WILL FOLLOW AND ASSIST NEED. SHE DOES HAVE HELP WITH [facility] 3 DAYS PER WEEK. Drapery Counselor: Celia Landis DCPIA - Discharge Planning Initial Assessment Updated by [email or web address]: Celia Landis on 05/12/20 10:44 am * Is the patient Alert and Oriented? Yes * PCP ALIZA * Pharmacy [facility] [address] * Preadmission Environment Home Alone * ADLs Independent * Other Equipment WC,WALKER,02, NEBS. UNSURE OF O2 COMPANY NAME. MAY BE [facility] * Community resources currently utilized Private Duty Care * Please name any agencies selected above. [facility] * Can the patient safely return to the preadmission environment? Yes * Has this patient been hospitalized within the prior 30 days at any hospital? No Last DP export: 05/12/20 9:46 a Patient Name: MELISSA CARLIN Page [phone] at 1108 All edits/amendments must be made on the electronic document DICTATION DATE: 05/12/201107 HEAD OF DESIGN: JESIKA 05/12/201107 RPT#: [id number] DC DATE: STATUS: ADM IN [facility] [address] [place] [address] END OF REPORT
[2020-05-12] MEDS ORDERED: KEFLEX500 MG PO (12:13)
[2020-05-12] MEDS ORDERED: HYDROCODON-ACE1 EAC7 PO (12:14)
[2020-05-12] MEDS ORDERED: PEPCID PO (12:14)
[2020-05-12] MEDS ORDERED: ASPIRIN EC325 M1 PO (12:16)
[2020-05-12 12:41] VITALS: BP 185/71
--- NOTE | 2020-05-12 14:04 | MORECARE ---
CASE MANAGEMENT DISCHARGE SUMMARY PATIENT: MELISSA CARLIN V UNIT: [id number] ADM DATE: 05/02/20 AGE: 74 : 43 SEX: F ROOM/BED: D.2231 AUTHOR: CESARDOC PHYSICIAN: REFERRING PHYSICIAN: RAE WEBBER MD DATE OF SERVICE: 05/12/20 Discharge Plan Patient Name: MELISSA CARLIN Facility: [facility]:[place] : 1945 Planned Disposition: Anticipated Discharge Date: Discharge Date: Expected LOS: Initial Reviewer: [email or web address] Initial Review Date: 05/12/2020 Generated: 05/12/20 3:03 pm Comments DCP- Discharge Planning Updated by [email or web address]: Celia Landis on 05/12/20 1:[address] Patient Name: MELISSA CARLIN Admission Status: Elective Accout number: [id number] Admission Date: 05-02-2020 : 1945 Admission Diagnosis:CELLULITIS OF LEFT LOWER LIMB Attending: MICKIE Current LOS: 10 Anticipated DC Date: Planned Disposition: Primary Insurance: [facility] MEDICARE SOLUTIONS Discharge Planning Comments: SPOKE WITH PATIENT ABOUT HH. LOYDA SIGNED FOR [facility]. I AM FAXING REFERRAL NOW. IMM SIGNED. CM TO FOLLOW AND ASSIST. Merchandising Consultant: Celia Landis DCP- Discharge Planning Updated by [id number]: Celia Landis on 05/12/20 9:[address] Patient Name: MELISSA CARLIN Admission Status: Elective Accout number: [id number] Admission Date: 05-02-2020 : 1945 Admission Diagnosis:CELLULITIS OF LEFT LOWER LIMB Attending: MICKIE Current LOS: 10 Anticipated DC Date: Planned Disposition: Primary Insurance: [facility] MEDICARE SOLUTIONS Discharge Planning Comments: CM met with patient at bedside after explaining CM role and obtaining verbal consent. CM discussed availability / needs of home health, REHAB and medical equipment. PATIENT HAS MEDICAL EQUIPMENT, STATES SHE COULD BENEFIT FROM REHAB. HAS USED OUTPATIENT REHAB AT [facility] FOR [facility]ATER THERAPY IN THE PAST. WHEN REVEIWING THERAPY NOTES THEY RECOMEND HOME HEALTH. CM WILL FOLLOW AND ASSIST NEED. SHE DOES HAVE HELP WITH [facility] 3 DAYS PER WEEK. Merchandising Consultant: Celia Landis DCPIA - Discharge Planning Initial Assessment Updated by [id number]: Celia Landis on 05/12/20 10:44 am * Is the patient Alert and Oriented? Yes * PCP FRANKYO * Pharmacy [facility] [address] * Preadmission Environment Home Alone * ADLs Independent * Other Equipment WC,WALKER,02, NEBS. UNSURE OF O2 COMPANY NAME. MAY BE [facility] * Community resources currently utilized Private Duty Care * Please name any agencies selected above. [facility] * Can the patient safely return to the preadmission environment? Yes * Has this patient been hospitalized within the prior 30 days at any hospital? No External Providers External Provider: [facility] Next Contact Date: Service Request Date: Service Type: Resolution: Reviewer: Comments: Coverage Notice Reviewer: [id number] Landry Landis Notice Issued Date-Time: 05/12/2020 13:59 Notice Type: IM Discharge Notice Notice Delivered To: Relationship to Patient: Golf Course Manager Name: Delivery Method: - Munira Days: Prior Verbal Notification: Recipient Understood Notice: Recipient Signature: Med Rec Note Co-signed by Attending: Coverage Notice Comment: Reviewer: [email or web address] Landry Landis Notice Issued Date-Time: 05/12/2020 13:59 Notice Type: Patient Choice Letter Notice Delivered To: Relationship to Patient: Golf Course Manager Name: Delivery Method: HAND - Hand Delivered Munira Days: Prior Verbal Notification: Recipient Understood Notice: Yes Recipient Signature: Yes Med Rec Note Co-signed by Attending: Coverage Notice Comment: ANTHONY TYLER Last DP export: 05/12/20 10:08 a Patient Name: MELISSA CARLIN Page [phone] at 1404 All edits/amendments must be made on the electronic document DICTATION DATE: 05/12/20 1403 HISTOTECHNICIAN: JESIKA 05/12/20 1403 RPT#: [id number] DC DATE: STATUS: ADM IN [facility] [address] [place] [address] END OF REPORT
--- NOTE | 2020-05-12 15:38 | NUR ---
OT NOTE: PT SEEN IN PM, SHE HAD JUST RETURNED TO BED FROM GOING TO BATHROOM. PT WAS VERY SOB. PT HAD BEEN DOING WELL LAST WEEK AND WAS GETTING UP AND AROUND ROOM WITH MINIMAL DIFFICULTY. PT ALSO C/O EDEMA IN UPPER PART OF B LES. D/W CM, REGARDING SOB PT WAS HAVING FROM ONLY A FEW STEPS TO AND FROM BATHROOM. PT LIVES ALONE, BUT DOES HAVE ASSIST 3X/WK..MAY BENEFIT FROM SNF OR REHAB. FATIMAH CARLSON, OTR/L [phone]
--- NOTE | 2020-05-12 16:19 | NUR ---
DISCHARGE TEACHING COMPLETE. NO FURTHER QUESTIONS. IV CATH REMOVED. CATH TIP INTACT. PATIENT WAITING RIDE TO ARRIVE.
--- NOTE | 2020-05-13 10:04 | MORECARE ---
CASE MANAGEMENT DISCHARGE SUMMARY PATIENT: MELISSA CARLIN V UNIT: [id number] ADM DATE: 05/02/20 AGE: 74 : 43 SEX: F ROOM/BED: D.2231 AUTHOR: CESARDOC PHYSICIAN: REFERRING PHYSICIAN: RAE WEBBER MD DATE OF SERVICE: 05/13/20 Discharge Plan Patient Name: MELISSA CARLIN Facility: [facility]:[place] : 1945 Planned Disposition: Anticipated Discharge Date: Discharge Date: 05/12/2020 Expected LOS: Initial Reviewer: [email or web address] Initial Review Date: 05/12/2020 Generated: 05/13/20 11:03 am Comments DCP- Discharge Planning Updated by [email or web address]: Celia Landis on 05/12/20 1:[address] Patient Name: MELISSA CARLIN Admission Status: Elective Accout number: [id number] Admission Date: 05-02-2020 : 1945 Admission Diagnosis:CELLULITIS OF LEFT LOWER LIMB Attending: MICKIE Current LOS: 10 Anticipated DC Date: Planned Disposition: Primary Insurance: [facility] MEDICARE SOLUTIONS Discharge Planning Comments: SPOKE WITH PATIENT ABOUT HH. LOYDA SIGNED FOR [facility]. I AM FAXING REFERRAL NOW. IMM SIGNED. CM TO FOLLOW AND ASSIST. Junior Loan Processor: Celia Landis DCP- Discharge Planning Updated by [email or web address]: Celia Landis on 05/12/20 9:[address] Patient Name: MELISSA CARLIN Admission Status: Elective Accout number: [id number] Admission Date: 05-02-2020 : 1945 Admission Diagnosis:CELLULITIS OF LEFT LOWER LIMB Attending: MICKIE Current LOS: 10 Anticipated DC Date: Planned Disposition: Primary Insurance: [facility] MEDICARE SOLUTIONS Discharge Planning Comments: CM met with patient at bedside after explaining CM role and obtaining verbal consent. CM discussed availability / needs of home health, REHAB and medical equipment. PATIENT HAS MEDICAL EQUIPMENT, STATES SHE COULD BENEFIT FROM REHAB. HAS USED OUTPATIENT REHAB AT [facility] FOR WATER THERAPY IN THE PAST. WHEN REVEIWING THERAPY NOTES THEY RECOMEND HOME HEALTH. CM WILL FOLLOW AND ASSIST NEED. SHE DOES HAVE HELP WITH [facility] 3 DAYS PER WEEK. Junior Loan Processor: Celia Landis DCPIA - Discharge Planning Initial Assessment Updated by [email or web address]: Celia Landis on 05/12/20 10:44 am * Is the patient Alert and Oriented? Yes * PCP ALIZA * Pharmacy [facility] [address] * Preadmission Environment Home Alone * ADLs Independent * Other Equipment WC,WALKER,02, NEBS. UNSURE OF O2 COMPANY NAME. MAY BE [facility] * Community resources currently utilized Private Duty Care * Please name any agencies selected above. [facility] * Can the patient safely return to the preadmission environment? Yes * Has this patient been hospitalized within the prior 30 days at any hospital? No Coverage Notice Reviewer: [email or web address] Landry Landis Notice Issued Date-Time: 05/12/2020 13:59 Notice Type: IM Discharge Notice Notice Delivered To: Relationship to Patient: Stock Ranch Supervisor Name: Delivery Method: - Munira Days: Prior Verbal Notification: Recipient Understood Notice: Recipient Signature: Med Rec Note Co-signed by Attending: Coverage Notice Comment: Reviewer: [email or web address] Landry Landis Notice Issued Date-Time: 05/12/2020 13:59 Notice Type: Patient Choice Letter Notice Delivered To: Relationship to Patient: [place] Supervisor Name: Delivery Method: HAND - Hand Delivered Munira Days: Prior Verbal Notification: Recipient Understood Notice: Yes Recipient Signature: Yes Med Rec Note Co-signed by Attending: Coverage Notice Comment: ANTHONY ESTES export: 05/12/20 1:04 p Patient Name: MELISSA CARLIN Page [phone] at 1004 All edits/amendments must be made on the electronic document DICTATION DATE: 05/13/20 1003 PROCESSING SPEC: JESIKA 05/13/20 1003 RPT#: [id number] DC DATE:05/12/20 STATUS: DIS IN [facility] [address] [place] [address] END OF REPORT
[2020-05-14 11:13] LABS: ACTIVATED PROTEIN C-RESISTANCE 2.7 ratio (2.2-3.5); ANTITHROMBIN III ANTIGEN 94 % (72-124); PROTEIN S - FREE 82 % (57-157); PROTEIN S - FUNCTIONAL 69 % (63-140); PROTEIN S - TOTAL 90 % (60-150)
[2020-05-16 07:16] LABS: PROTEIN C - ANTIGEN 119 % (60-150); PROTEIN C - FUNCTIONAL 131 % (73-180)
== END 2020-05-12 17:35 | disposition home health service (06) | DRG 638 ==
LOC: D.MS 17:16
PROVIDERS: Family Medicine; Internal Medicine Hematology & Oncology; ADMIT Family Medicine; ATTEND Family Medicine
DX: E11.628 Type 2 diabetes mellitus with other skin complications (principal); L03.116 Cellulitis of left lower limb; Z68.41 Body mass index [BMI] 40.0-44.9, adult; F33.1 Major depressive disorder, recurrent, moderate; L03.115 Cellulitis of right lower limb; E11.9 Type 2 diabetes mellitus without complications; E66.01 Morbid (severe) obesity due to excess calories; I10 Essential (primary) hypertension; E78.5 Hyperlipidemia, unspecified; I25.10 Atherosclerotic heart disease of native coronary artery without angina pectoris; I12.9 Hypertensive chronic kidney disease with stage 1 through stage 4 chronic kidney disease, or unspecified chronic kidney disease; E11.22 Type 2 diabetes mellitus with diabetic chronic kidney disease; N18.3 Chronic kidney disease, stage 3 (moderate); R32 Unspecified urinary incontinence; K21.9 Gastro-esophageal reflux disease without esophagitis